=== PATIENT | male | born 1960 | race Two or more races ===

== ENCOUNTER 2017-03-14 05:13 | Inpatient (IN) | payer OTHER ==
[~2017-03-14] VITALS: Ht 167.6 cm; Wt 97.1 kg
[2017-03-14] VITALS (13 sets, daily range): BP systolic 100–145; BP diastolic 55–81
[2017-03-14] MEDS ORDERED: SIMVASTATIN10 MG ORAL (05:52)
[2017-03-14] MEDS ORDERED: PANTOPRAZOLE SO40 MG ORAL (05:52)
[2017-03-14] MEDS ORDERED: AMLODIPINE BESY10 MG ORAL (05:52)
[2017-03-14] MEDS ORDERED: LISINOPRIL40 MG ORAL (05:52)
[2017-03-14] MEDS ORDERED: GABAPENTIN600 MG ORAL (05:52)
[2017-03-14] MEDS ORDERED: LR 1000ml 1,000 ML IVLG SCH ×2 (06:13→14:15)
[2017-03-14] MEDS ORDERED: Midazolam 2mg/2ml Inj IVP PRN ×2 (06:15→14:15)
[2017-03-14] MEDS ORDERED: Norco 5mg/325mg tab ORAL PRN ×2 (06:15→14:15)
[2017-03-14] MEDS ORDERED: Ketorolac 60mg Inj IV PRN ×2 (06:15→14:15)
[2017-03-14] MEDS ORDERED: DiphenhydrAMINE 50mg/ml Inj IVP PRN ×2 (06:15→14:15)
[2017-03-14] MEDS ORDERED: Hydromorphone 0.5mg/0.5ml inj IVP PRN (06:15)
[2017-03-14] MEDS ORDERED: Acetaminophen (Non formulary) 100 ML IV ONE (06:15)
[2017-03-14] MEDS ORDERED: fentaNYL 100 mcg/2 mL IV PRN ×2 (06:15→14:15)
[2017-03-14] MEDS ORDERED: Atropine Inj 1mg/10ml Syr IV PRN ×2 (06:15→14:15)
[2017-03-14] MEDS ORDERED: Ketorolac 30mg Inj IV PRN ×2 (06:15→14:15)
[2017-03-14] MEDS ORDERED: Norco 7.5mg/325mg tab ORAL PRN ×3 (06:15→14:15)
[2017-03-14] MEDS ORDERED: LORazepam Inj 2mg/ml 1ml IV PRN ×2 (06:15→14:15)
[2017-03-14] MEDS ORDERED: oxyCODONE HCL/Acetaminophen 5/325mg ORAL PRN ×2 (06:15→14:15)
[2017-03-14] MEDS ORDERED: Metoclopramide 10mg/2ml Inj IVP PRN ×3 (06:15→14:15)
--- NOTE | 2017-03-14 06:18 | Anethesia Preoperative Eval ---
Anesthesia Pre-op PMH/ROS General Date of Evaluation: Mar 14, 2017 Time of Evaluation: 07:11 Anesthesiologist: Cristina ASA Score: ASA 3 Mallampati Score Class I : Soft palate, uvula, fauces, pillars visible Class II: Soft palate, uvula, fauces visible Class III: Soft palate, base of uvula visible Class IV: Only hard plate visible Mallampati Classification: Class II Surgeon: Bandar Diagnosis: Back Pain Surgical Procedure: ALIF L5-S1, PSF L5-S1 Anesthesia History: none Family History: no anesthesia problems Allergies: Coded Allergies: No Known Allergies (Unverified , 03/10/17) Medications: see eMAR Past Medical History Cardiovascular: Reports: HTN, other - HL Gastrointestinal/Genitourinary: Reports: GERD Endocrine: Reports: DM Other: obesity - BMI 36 PSxH Narrative: Amp 2nd R Toe Anesthesia Pre-op Phys. Exam Physician Exam Vital Signs Date Time Temp Pulse Resp B/P (MAP) Pulse Ox O2 Delivery O2 Flow Rate FiO2 03/14/17 06:24 97.5 74 20 145/81 98 Room Air Constitutional: NAD Neurologic: CN 2-12 intact Cardiovascular: RRR Respiratory: CTA Gastrointestinal: S/NT/ND Airway Exam Mallampati Score: Class II MO: limited ROM: limited Teeth: missing Anesthesia Pre-op A/P Risk Assessment & Plan Assessment: ASA 3 Plan: GA, BIS, Glidescope Status Change Before Surgery: No Pre-Antibiotics Dru Grams Ancef IV Given Within 1 Hr of Incision: Yes Time Given: 07:31 Samson Evans MD Mar 14, 2017 06:18
[2017-03-14] MEDS ORDERED: LISPRO SUBQ (06:19)
[2017-03-14] MEDS ORDERED: ASPIRIN81 MG ORAL (06:19)
[2017-03-14] MEDS ORDERED: LANTUS SOL100 UNIT/1 SUBQ (06:19)
[2017-03-14] MEDS ORDERED: Neostigmine 1mg/ml 10ml Inj ONE (07:00)
[2017-03-14] MEDS ORDERED: fentaNYL 100 mcg/2 mL IV ONE (07:00)
[2017-03-14] MEDS ORDERED: Zemuron 50mg/5ml Inj IV ONE (07:00)
[2017-03-14] MEDS ORDERED: Glycopyrrolate 0.2mg/ml 1ml Vial ONE (07:00)
[2017-03-14] MEDS ORDERED: NS Irrig 1000ml ONE (07:00)
[2017-03-14] MEDS ORDERED: Atropine Sulfate 0.4mg/ml inj ONE (07:00)
[2017-03-14] MEDS ORDERED: Lidocaine 1% MPF 10mg/ml 5ml ONE (07:00)
[2017-03-14] MEDS ORDERED: ePHEDrine 50mg/ml Inj ONE (07:00)
[2017-03-14] MEDS ORDERED: Sterile Water Irrig 1000ml IRRIG ONE (07:00)
[2017-03-14] MEDS ORDERED: Lidocaine 1% Plain 30 ml INJ ONE (07:00)
[2017-03-14] MEDS ORDERED: Propofol 1,000mg/ 100ml btl IV ONE (07:00)
[2017-03-14] MEDS ORDERED: Ropivacaine 5mg/ml Vial 30ml INJ ONE (07:04)
[2017-03-14] MEDS ORDERED: Thrombin 5000 units TOPIC ONE (07:04)
[2017-03-14] MEDS ORDERED: Heparin 5000 units/ml inj ONE (07:04)
[2017-03-14] MEDS ORDERED: Gelfoam Absorbable 1gm powder pkt TOPIC ONE ×2 (07:05→14:04)
[2017-03-14] MEDS ORDERED: Bacitracin 50000 Units Vial ONE ×2 (07:05→14:21)
[2017-03-14] MEDS ORDERED: Thrombin 5000 units spray kit TOPIC ONE ×2 (07:05→14:01)
--- NOTE | 2017-03-14 07:28 | Pre-Procedure Note/Attestation ---
Pre-Procedure Note/Attestation Complete Prior to Procedure Planned Procedure: not applicable Procedure Narrative: Anterior lumbar interbody fusion L5/S1 with bone morphogenic protein and instrumentation, posterior lumbar Lumbar 4 to Sacral 1 decompression with Lumbar 5 to Sacral 1 instrumented fusion with autograft and allograft. Indications for Procedure Pre-Operative Diagnosis: L4 to S1 stenosis with spondylosis L5/S1 and facet hypertrophy. Attestation I attest that I discussed the nature of the procedure; its benefits; risks and complications; and alternatives (and the risks and benefits of such alternatives ), prior to the procedure, with the patient (or the patient's legal uniforms sales representative). I attest that, if there was a reasonable possibility of needing a blood transfusion, the patient (or the patient's legal uniforms sales representative) was given the [place] [employer] standardized written summary, pursuant to the [place] Blood Safety Act ([place] Health and Safety Code # 1645, as amended). I attest that I re-evaluated the patient just prior to the surgery and that there has been no change in the patient's H&P, except as documented below: DENISE GARCIA Mar 14, 2017 07:28
--- NOTE | 2017-03-14 07:33 | Brief Operative Note ---
Immediate Post Operative Note Operative Note Chief Complaint: Low back pain and lumbar radiculopathy Pre-op Diagnosis: L4 to S1 stenosis with spondylosis L5/S1 and facet hypertrophy. Procedure: ALIF L5/S1 L4 to S1 decompression L5/S1 instrumentation Post-op Diagnosis: same as above Post-op Diagnosis: same as pre-op Findings: consistent w/pre-op dx studies Surgeon: Bandar BAPTISTE Desk Representative: Matheus Davis Additional Surgeons: Eileen BAPTISTE Anesthesiologist: Cristina Anesthesia: general Specimen: yes Condition: stable Fluids: per anesthesia Drains: hemovac Packing: none Implant(s) used?: Yes DENISE GARCIA Mar 14, 2017 07:33
[2017-03-14] MEDS ORDERED: Naloxone 0.4mg/ml Inj IVP PRN (10:00)
[2017-03-14] MEDS ORDERED: HYDROmorphone 1mg/ml Carpuject IVP PRN (10:00)
--- NOTE | 2017-03-14 12:26 | Immediate Post-Op Evaluation ---
Immediate Post-Op Evalulation Immediate Post-Op Evalulation Procedure: ALIF L5-S1, PSF L5-S1 Date of Evaluation: Mar 14, 2017 Time of Evaluation: 15:29 IV Fluids: 1900 LR Blood Products: 0 Estimated Blood Loss: 100 Urinary Output: 450 Blood Pressure Systolic: 135 Blood Pressure Diastolic: 73 Pulse Rate: 74 Respiratory Rate: 16 O2 Sat by Pulse Oximetry: 100 Temperature (Fahrenheit): 98.4 Pain Score (1-10): 3 Nausea: No Vomiting: No Complications 0 Patient Status: awake, reacts, patent, extubated, none Hydration Status: adequate Dru Grams Ancef IV Given Within 1 Hr of Incision: Yes Time Given: 07:31 Samson Evans MD Mar 14, 2017 12:26
--- NOTE | 2017-03-14 13:00 | Operative Note - Dictated ---
DATE OF OPERATION: 03/14/2017 SURGEONS: 1. Keshav Arellano M.D.(for the approach). 2. Ajay Portillo M.D.(for the spine procedure). ANESTHESIOLOGIST: Samson Evans M.D. ANESTHESIA: General endotracheal. PREOPERATIVE DIAGNOSIS: Disk disease at L5-S1. POSTOPERATIVE DIAGNOSIS: Disk disease at L5-S1. OPERATIVE PROCEDURES: 1. Muscle sparing, anterior abdominal, extraperitoneal approach for anterior lumbar interbody fusion, L5-S1 (one interspace). 2. Mobilization of left iliac artery. 3. Mobilization of left iliac vein. 4. Exposure of the anterior surface of the spine at L5-S1 (one interspace). INFORMED CONSENT: The procedure of anterior access for an anterior interbody fusion was explained in detail to the patient preoperatively by myself and Dr. Portillo. A molder pipe covering, Karen Smith, surgical scrub tech was used to make sure the patient understood. The risks including hemorrhage, infection, vascular injury, ureteral injury, nerve injury, visceral injury, retrograde ejaculation, and lymphedema were explained in detail. The patient stated that he understood the procedure, its rationale, and risks. He had no further questions and accepted the procedure as outlined above. Background information, indications for surgery, operative findings, and specimens removed will be contained in Dr. Portillo's operative report. OPERATIVE FINDINGS PERTINENT TO ACCESS: There was one accessory vein over the anterior surface of the L5-S1 disk that required ligation and division. Otherwise, all retroperitoneal structures were normal. OPERATIVE PROCEDURE: The patient was brought to the operating room in stable condition. Monitoring was instituted with arterial line, ECG, O2 saturation monitor, and blood pressure cuff. A pulse oximeter was placed on the left foot to monitor circulation to the left lower extremity. The patient was induced with anesthesia without any difficulty. The patient was prepared and draped in sterile fashion. Using x-ray and fluoroscopy, the level of the L5-S1 disk was marked on the skin. A left lower quadrant transverse incision was performed from the midline to the edge of the left rectus, approximately one-third [address] the way up from the pubis to the umbilicus. The incision was carried down through the subcutaneous tissue to the rectus fascia. The rectus fascia was incised with the cautery, with extension into the fibers of the external oblique aponeurosis. Elevation of the rectus fascia away from the anterior surface of the muscle was carried out for a distance of approximately 5 cm both cephalad and caudad. This allowed for retraction of the rectus muscle both medially and laterally in order to obtain direct A-P access to the spine. The inferior epigastric vessels were identified and preserved. The posterior sheath was incised as needed and carefully from the peritoneum, taking care not to enter the peritoneal cavity. The peritoneum was bluntly dissected away from the undersurface of the internal oblique muscle. Careful blunt dissection was used to elevate the peritoneum anteriorly until the psoas muscle was identified. The ureter was also identified and swept upwards with the peritoneum and its contents. Further dissection was used to expose the anterior surface of the left common iliac artery. A Chance retractor was placed into the retroperitoneum lateral to the rectus muscle. A lap sponge was inserted over the psoas muscle and pushed superiorly to keep the abdominal contents out of the way with a Nicky retractor. Careful sharp and blunt dissection was used to expose the entire length of the common iliac artery to its origin at the aortic bifurcation. Dissection along the medial wall of the artery was carried out to expose the common iliac vein, which lies under and slightly to the right of the artery. With extreme care, the vein was also exposed in its entirety. Deep dissection was carried out to expose the L5-S1 disk space. The middle sacral vessels were identified and carefully ligated and cauterized proximally and distally and transected. The accessory vein was doubly ligated and divided. Any other venous tributaries in the area were controlled with clips and/or cautery and then transected. Mobilization of the iliac vessels below the bifurcation was carried out for proper visualization of the anterior surface of the spine. This was done with careful blunt dissection in order to peel away the left common iliac vein from the anterior longitudinal ligament, to which it is very closely approximated. The dissection along the anterior surface of the spine was carried out bluntly and without the use of cautery to preserve the sympathetic plexus, which lies anteriorly, overlying the aortic bifurcation and extends inferiorly towards the sacral hollow. After proper skeletonization and mobilization of the vessels and preservation of all vital structures, the Chance-Nicky retractor combination was removed and the table-held retractor was deployed. The retractor blades were inserted, with the rectus muscle now retracted laterally, first on the right to expose that side of the disk space and then on the left to keep the iliac vessels out of the way. Third and fourth retractor blades were placed inferiorly and superiorly. This allowed complete exposure and direct A-P approach to the anterior surface of the spine at L5-S1. A needle was inserted into the disk and an x-ray taken to verify the midline and the level. Dr. Portillo proceeded to perform the diskectomy, partial vertebrectomy, and fusion using the appropriate technique and hardware. After the diskectomy and fusion were completed, copious irrigation with antibiotic solution was carried out. The retractor blades were removed and the integrity of the iliac vessels was checked to make sure that there was no tear or thrombosis of the vein and that there was adequate flow through the artery with no evidence of spasm or thrombosis. A further check for hemostasis was made and the integrity of the ureter was verified. The peritoneum was allowed to return to its anatomical position. The anterior rectus sheath was closed with a continuous suture of #1 Vicryl. The subcutaneous tissue and skin were closed with a subcuticular stitch of 2-0 Vicryl. Steri-Strips and a sterile dressing were applied. Final sponge, needle, and instrument counts were verified as correct x2. Manual and visual sweeps were correct. Estimated blood loss was minimal and approximately 40 mL. There were good dorsalis pedis and posterior tibial pulses in both feet. The pulse oximeter on the left foot showed 100% oxygen saturation with a triphasic waveform, consistent with preoperative baseline. The patient remained in the operating room, under anesthesia and in stable condition for further surgery. Keshav Arellano M.D. DR: LASHA JOB#: [id number] CC: Ajay Portillo M.D.; Fax#: [phone] [facility]
[2017-03-14] MEDS: Hydromorphone 0.5mg/0.5ml inj IVP PRN ×2 (16:20→16:47)
--- NOTE | 2017-03-14 16:25 | Diagnostic Imaging Report ---
Indication: Lower lumbar fusion Comparison: None Findings: Intraoperative, fluoroscopic views of the lumbar spine were obtained. Fluoroscopic imaging showing discectomy at L5-S1. L5-S1 fusion with pedicle screws and fusion rods noted. Impression: Intraoperative imaging
[2017-03-14] MEDS: 1/2NS w/KCl 20mEq 1000ml 1,000 ML IV SCH (17:58)
[2017-03-14] MEDS: Docusate 100mg cap ORAL SCH (18:00)
--- NOTE | 2017-03-14 19:07 | General Progress Note ---
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 ALIF L5/S1 L4 to S1 decompression L5/S1 instrumentation HTN DM PLAN 1. incentive spirometry 2. Lovenox 3. PT evaluation and therapy 4. Hydration 5. Pain management 6. resume Lantus when taking PO: sliding scale for now and adjust Subjective Allergies: Coded Allergies: No Known Allergies (Unverified , 03/10/17) Subjective post op care noted Objective Last 24 Hour Vital Signs Date Time Temp Pulse Resp B/P (MAP) Pulse Ox O2 Delivery O2 Flow Rate FiO2 03/14/17 17:30 97.2 80 19 108/61 97 Room Air 03/14/17 17:17 98.6 03/14/17 17:15 98.6 74 15 102/60 98 Nasal Cannula 3.0 03/14/17 17:00 75 13 102/58 98 Nasal Cannula 3.0 03/14/17 16:47 74 11 113/63 98 Nasal Cannula 3.0 03/14/17 16:35 73 18 105/66 98 Nasal Cannula 3.0 03/14/17 16:20 73 15 103/60 96 Nasal Cannula 3.0 03/14/17 16:05 74 12 116/69 100 Simple Mask 6.0 03/14/17 15:50 74 11 107/65 100 Simple Mask 6.0 03/14/17 15:38 73 17 104/65 100 Simple Mask 6.0 03/14/17 15:33 73 12 119/70 100 Simple Mask 6.0 03/14/17 15:29 74 16 100 03/14/17 15:28 98.4 73 13 132/72 100 Simple Mask 6.0 03/14/17 06:24 97.5 74 20 145/81 98 Room Air Intake and Output 03/14/17 03/15/17 19:00 07:00 Intake Total 2500 ml Output Total 775 ml Balance 1725 ml Intake IV Total 2500 ml Output Urine Total 550 ml Drainage Total 125 ml Estimated Blood Loss 100 ml Height (Feet): 5 Height (Inches): 6.00 Weight (Pounds): 214 Objective WDWN NAD clear breath sounds bilaterally without rhonchi or wheeze [id number] without MRG NABS nontender no HSM no CCE nonfocal NILDA MERINO Mar 14, 2017 19:07
[2017-03-14] MEDS: ceFAZolin sod 1 GM in D5W 55 ML IV SCH (21:50)
[2017-03-14] MEDS: Norco 7.5mg/325mg tab ORAL PRN (21:51)
[2017-03-14] MEDS: NovoLOG Insulin Flexpen SUBQ SCH (21:56)
--- NOTE | 2017-03-14 23:30 | Operative Note - Dictated ---
DATE OF OPERATION: 03/14/2017 PREOPERATIVE DIAGNOSES: 1. L5-S1 and L4-L5 stenosis with clinical symptomatic lumbar radiculopathy. 2. Aggravation of L4-L5 and L5-S1 stenosis. 3. L5-S1 spondylosis with disk height collapse and facet hypertrophy, intractable leg and back pain. POSTOPERATIVE DIAGNOSES: 1. L5-S1 and L4-L5 stenosis with clinical symptomatic lumbar radiculopathy. 2. Aggravation of L4-L5 and L5-S1 stenosis. 3. L5-S1 spondylosis with disk height collapse and facet hypertrophy, intractable leg and back pain. PROCEDURES PERFORMED: 1. With vascular surgeon, Dr. Keshav Arellano, anterior lumbar interbody fusion, L5-S1. 2. Application biomechanical spacer L5-S1. 3. Anterior spinal daina screw instrumentation L5-S1. 4. BMP fusion. Small BMP used. Dr. Arellano will be dictating his component of the procedure. 5. Bilateral L4-L5, L5-S1 hemilaminotomy, mesial decompression, and foraminotomy. 6. Posterolateral arthrodesis, L5-S1. 7. Posterior instrumentation L5-S1, nonsegmental. 8. Autograft and allograft posterior L5-S1 fusion. 9. Use of microscope. SURGEON: Ajay Portillo M.D. SENIOR MECHANICAL ESTIMATOR: Ajay Gasca CO-SURGEON: Keshav Arellano M.D. ANESTHESIOLOGIST: Samson Evans M.D. ANESTHESIA: General endotracheal combined anesthesia. ESTIMATED BLOOD LOSS: Approximately 400 to 600 mL. IV FLUIDS: Per anesthesia records. INTRAOPERATIVE FINDINGS: Significant spondylosis with anglican of height at L5-S1 and indirect reduction of the foramen at L5-S1, significant stenosis posteriorly noted with disk protrusion noted at L5-S1 bilaterally. Foramen were stenotic and subsequently decompression at L5-S1 the foramen were well maintained. L4-L5 bilateral lateral recess stenosis and foraminal stenosis right side worse than the left. Facet capsule maintained at L4-L5. INDICATIONS FOR PROCEDURE: This is a pleasant gentleman with a significant spine injury and subsequent aggravation with motion segment at L4-L5 and L5-S1 lumbar radiculopathy was noted. The patient had corroborating L5-S1 and L4-L5 MRI findings that matched his subjective complaints. The patient's objective exam findings matched with subjective complaints. The patient had failed a reasonable number of conservative treatment and was indicated for surgery. No guarantees of outcome were given. Risks and benefits were discussed including failure to surgery, , complications of vascular disease after surgery, swollen leg, future operation, adjacent segment degeneration, paralysis, and other complications were also discussed as well as provided to the patient in an informed consent. No guarantees of outcome were given. The patient was preoperatively cleared for surgery. On the day of surgery, the patient was positively identified, taken to operating room, intubated by the anesthesiologist, positioned supine with the spine lift team. Dr. Arellano essentially prepared the patient for anterior retroperitoneal approach, and once the surgical pause was performed, antibiotics were delivered in usual sterile fashion. Dr. Arellano began a retroperitoneal approach and the L5-S1 level was identified on x-ray. Once that level was identified, with me as surgical dental assistant during the retroperitoneal approach, I performed a radical diskectomy, performed endplate preparation for fusion with curettage of the end plate cartilaginous material and slight use of the rasp to create minimal endplate bleeding. Subsequently, sequential dilators were used with a 12 degree lordotic trial and eventually a 14 mm cage was able to be inserted restoring the patient's posterior height and restoring the patient's rostral caudal foraminal height at L5/S1. The cage had good tactile feedback and was fixed well. A 6.5 mm x 35 mm Synthes daina screw and washer were inserted into the sacrum with a very impressive bite and purchase and subsequently the wound was copiously irrigated. Of note, a small BMP sponge with [place] demineralized bone matrix was placed mixed into the cage at L5-S1. Subsequently, Dr. Arellano reapproximated the incision of the abdomen and performed the closure, which he will dictate. X-rays demonstrated good position of the ALIF cage. Subsequently, the patient was positioned prone onto the [place] multi-padded table with the hips well padded. Eyes and genitalia were protected and arms were in standard physiologic position. Markings were made on lumbodorsal region approximately 3 to 4 inches. Subsequently, the back was prepped and draped in a sterile fashion where antibiotics were redosed as necessary. The posterior exposure was completed once the tips of the TPs of L5 and S1 were identified. The facet at L5-S1 was denuded and removed the capsule and L4-L5 capsule was maintained. X-ray confirmed the level and subsequently I began instrumentation initially with L5 pedicle using standard orthopedic spine surgical technique. I was able to insert a 6.5 mm GS medical screw using standard drill pedicle finder ball-tip Feeler and subsequently tap, which was undersized by 0.5 mm to 1 mm for the pedicle screw and inserted the L5 pedicle screw on the left side using fluoroscopic views as well as orthopedic technique with medialization and angulation. Subsequently, the pedicle screw was inserted without difficulty. Medial breach was not noted on direct palpation. I inserted the left S1 screw as well as right L5 and S1 screw using similar technique. Under fluoroscopic visualization, x-rays demonstrated good position. By the time decompression was completed the paralytic medications had worn off I was able to test the pedicles screws. EMG demonstrated no aberrant stimulation with the lowest milliamperes on the right L5 pedicle with 11 milliamperes. The remaining pedicles were greater than 15 or nonreactive. Once the decompression was completed, I was able to palpate medially and did not find under direct palpation medial breach in any of the pedicle screws. Subsequently once the pedicle screws were inserted, the microscope was pulled into the view and performed hemilaminotomy of L4 and L5 initially with removal of ligamentum flavum and drilling the lamina down to a shell at L4 and L5 and decompression. The L4-L5 level was moderately stenotic. The L5-S1 level was in a similar fashion decompressed, however, was quite significantly stenotic with adhesions. There was significant foraminal stenosis and once the decompression was completed, I was able to pass a [place] Feeler and [place] 3 past the foramen as well as in the lateral recess into the S1 region. I repeated this on the right side as well and performed bilateral L4-L5 and L5-S1 decompression. The wound was copiously irrigated with pulse lavage. X-rays demonstrated no aberrant implants. Stimulation with EMG as mentioned previously. Direct palpation of the pedicles did not demonstrate any abnormal breach indicating even if low 11 milliamperes was noted in the right L5, it was noncompressive if there was a slight split in the pedicle or suspicion of a medial breach. The risk outweighed the benefit to exchange that right L5 screw. Subsequently, the rods were attached at L5-S1 and locked in position in lordosis. Lateral gutters were decorticated and bone was placed from the autograft that was collected during the procedure mixed with one-to-one ratio Fibergraft. Once the lateral gutters were decorticated and the graft was applied, the wound was inspected for excessive bleeding. Once hemostasis was obtained, there was some minimal ooze as expected. FloSeal was applied as necessary. Bipolar was used copiously and there was no CSF leak during the procedure under Valsalva maneuver which was performed. The wound was reapproximated with multilevel closure with #1 Vicryl for the fascia, anchored to the spinous prosthesis, 2-0 Vicryl for the dermis, and 3-0 Monocryl for the skin. Two subfascial drains were applied on either side of the spine and the patient's dressings were applied and subsequently using spine lift team, with appropriate precautions, the patient was returned to supine position in the rney with the spine lift team. COMPLICATIONS: None. DISPOSITION: To recovery in stable condition. Ajay Portillo M.D. DR: LINDA JOB#: [id number] CC: NATY
[2017-03-15 00:54] VITALS: BP 108/62
[2017-03-15] MEDS: 1/2NS w/KCl 20mEq 1000ml 1,000 ML IV SCH (02:51)
[2017-03-15 04:47] VITALS: BP 113/62
[2017-03-15] MEDS: ceFAZolin sod 1 GM in D5W 55 ML IV SCH ×3 (05:58→21:31)
[2017-03-15] MEDS: NovoLOG Insulin Flexpen SUBQ SCH ×4 (06:00→21:33)
[2017-03-15 08:00] VITALS: BP 115/63
[2017-03-15 08:18] LABS: BASOPHILS % (AUTO) 0.4 % (0.0-2.0); EOSINOPHILS % (AUTO) 0.4 % (0.0-3.0); LYMPHOCYTES % (AUTO) 12.3 % (20.0-45.0); MEAN CORPUSCULAR HEMOGLOBIN 30.9 PG (27.0-31.0); MEAN CORPUSCULAR HGB CONC 35.4 G/DL (32.0-36.0); MEAN CORPUSCULAR VOLUME 87 FL (80-99); MEAN PLATELET VOLUME 8.6 FL (6.5-10.1); NEUTROPHILS % (AUTO) 77.9 % (45.0-75.0); PLATELET COUNT 119 K/UL (150-450); RED BLOOD COUNT 2.96 M/UL (4.70-6.10); RED CELL DISTRIBUTION WIDTH 11.1 % (11.6-14.8); WHITE BLOOD COUNT 7.3 K/UL (4.8-10.8)
[2017-03-15 08:34] LABS: ANION GAP 5 mmol/L (5-15); CARBON DIOXIDE 25 MMOL/L (21-32); CHLORIDE 101 MMOL/L (98-107); CREATININE 1.7 MG/DL (0.55-1.30); GLOMERULAR FILTRATION RATE 41.8 mL/min (>60); POTASSIUM 5.9 MMOL/L (3.5-5.1); SODIUM 131 MMOL/L (136-145)
[2017-03-15] MEDS: Docusate 100mg cap ORAL SCH ×2 (09:28→18:20)
[2017-03-15] MEDS: Lisinopril 20mg tab ORAL SCH (09:29)
[2017-03-15 10:20] LABS: BASOPHILS % (AUTO) 0.5 % (0.0-2.0); EOSINOPHILS % (AUTO) 0.5 % (0.0-3.0); LYMPHOCYTES % (AUTO) 11.7 % (20.0-45.0); MEAN CORPUSCULAR HEMOGLOBIN 30.4 PG (27.0-31.0); MEAN CORPUSCULAR HGB CONC 34.9 G/DL (32.0-36.0); MEAN CORPUSCULAR VOLUME 87 FL (80-99); MEAN PLATELET VOLUME 7.5 FL (6.5-10.1); MONOCYTES % (AUTO) 10.9 % (1.0-10.0); NEUTROPHILS % (AUTO) 76.4 % (45.0-75.0); PLATELET COUNT 121 K/UL (150-450); RED BLOOD COUNT 2.92 M/UL (4.70-6.10); RED CELL DISTRIBUTION WIDTH 11.1 % (11.6-14.8); WHITE BLOOD COUNT 8.3 K/UL (4.8-10.8)
--- NOTE | 2017-03-15 10:22 | General Progress Note ---
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 ALIF L5/S1 L4 to S1 decompression L5/S1 instrumentation HTN DM (150-160) elevated K likely due to IV fluid reduced NA anemia PLAN 1. incentive spirometry 2. Lovenox 3. PT evaluation and therapy 4. Hydration- dc KCL and change to NS; recheck BMP today 5. Pain management 6. resume Lantus when taking PO: sliding scale for now and adjust- controlled thus far impression, plan, and exam edited and reviewed in detail care discussed with RN Subjective Allergies: Coded Allergies: No Known Allergies (Unverified , 03/10/17) Subjective post op care noted comfortable Objective Last 24 Hour Vital Signs Date Time Temp Pulse Resp B/P (MAP) Pulse Ox O2 Delivery O2 Flow Rate FiO2 03/15/17 09:29 115/63 03/15/17 09:29 95 115/63 03/15/17 08:00 97.0 95 19 115/63 96 Nasal Cannula 2.0 03/15/17 04:47 99.2 88 18 113/62 96 Nasal Cannula 3.0 03/15/17 00:54 98.1 85 18 108/62 95 Nasal Cannula 3.0 03/14/17 22:50 98.3 03/14/17 20:58 98.3 79 19 100/55 96 Nasal Cannula 3.0 03/14/17 17:30 97.2 80 19 108/61 97 Room Air 03/14/17 17:17 98.6 03/14/17 17:15 98.6 74 15 102/60 98 Nasal Cannula 3.0 03/14/17 17:00 75 13 102/58 98 Nasal Cannula 3.0 03/14/17 16:47 74 11 113/63 98 Nasal Cannula 3.0 03/14/17 16:35 73 18 105/66 98 Nasal Cannula 3.0 03/14/17 16:20 73 15 103/60 96 Nasal Cannula 3.0 03/14/17 16:05 74 12 116/69 100 Simple Mask 6.0 03/14/17 15:50 74 11 107/65 100 Simple Mask 6.0 03/14/17 15:38 73 17 104/65 100 Simple Mask 6.0 03/14/17 15:33 73 12 119/70 100 Simple Mask 6.0 03/14/17 15:29 74 16 100 03/14/17 15:28 98.4 73 13 132/72 100 Simple Mask 6.0 Laboratory Tests 03/15/17 07:00: White Blood Count 7.3, Red Blood Count 2.96L, Hemoglobin 9.1L, Hematocrit 25.8L , Mean Corpuscular Volume 87, Mean Corpuscular Hemoglobin 30.9, Mean Corpuscular Hemoglobin Concent 35.4, Red Cell Distribution Width 11.1L, Platelet Count 119L, Mean Platelet Volume 8.6, Neutrophils (%) (Auto) 77.9H, Lymphocytes (%) (Auto) 12.3L, Monocytes (%) (Auto) 9.0, Eosinophils (%) (Auto) 0.4, Basophils (%) (Auto) 0.4, Sodium Level 131L, Potassium Level 5.9H, Chloride Level 101, Carbon Dioxide Level 25, Anion Gap 5, Blood Urea Nitrogen 35H, Creatinine 1.7H, Estimat Glomerular Filtration Rate 41.8, Glucose Level 140H, Calcium Level 8.0L 03/15/17 10:10: White Blood Count [Pending], Red Blood Count [Pending], Hemoglobin [Pending], Hematocrit [Pending], Mean Corpuscular Volume [Pending], Mean Corpuscular Hemoglobin [Pending], Mean Corpuscular Hemoglobin Concent [Pending], Red Cell Distribution Width [Pending], Platelet Count [Pending], Mean Platelet Volume [ Pending], Neutrophils (%) (Auto) [Pending], Lymphocytes (%) (Auto) [Pending], Monocytes (%) (Auto) [Pending], Eosinophils (%) (Auto) [Pending], Basophils (%) (Auto) [Pending], Sodium Level [Pending], Potassium Level [Pending], Chloride Level [Pending], Carbon Dioxide Level [Pending], Blood Urea Nitrogen [Pending], Creatinine [Pending], Estimat Glomerular Filtration Rate [Pending], Glucose Level [Pending], Calcium Level [Pending] Height (Feet): 5 Height (Inches): 6.00 Weight (Pounds): 214 Objective WDWN NAD clear breath sounds bilaterally without rhonchi or wheeze [id number] without MRG NABS nontender no HSM no CCE nonfocal NILDA MERINO Mar 15, 2017 10:22
[2017-03-15 10:38] LABS: ANION GAP 5 mmol/L (5-15); CALCIUM 8.2 MG/DL (8.5-10.1); CARBON DIOXIDE 26 MMOL/L (21-32); CHLORIDE 101 MMOL/L (98-107); CREATININE 1.7 MG/DL (0.55-1.30); GLOMERULAR FILTRATION RATE 41.8 mL/min (>60); POTASSIUM 5.8 MMOL/L (3.5-5.1); SODIUM 131 MMOL/L (136-145)
[2017-03-15 12:00] VITALS: BP 104/60
[2017-03-15 16:00] VITALS: BP 109/59
[2017-03-15 20:23] VITALS: BP 104/48
[2017-03-16 00:19] VITALS: BP 119/65
[2017-03-16] MEDS: Norco 7.5mg/325mg tab ORAL PRN ×2 (00:28→20:09)
[2017-03-16 04:41] VITALS: BP 98/50
[2017-03-16] MEDS: ceFAZolin sod 1 GM in D5W 55 ML IV SCH (06:45)
[2017-03-16] MEDS: NovoLOG Insulin Flexpen SUBQ SCH ×4 (06:50→20:15)
[2017-03-16 07:18] LABS: ANION GAP 6 mmol/L (5-15); CALCIUM 8.2 MG/DL (8.5-10.1); CARBON DIOXIDE 21 MMOL/L (21-32); CHLORIDE 101 MMOL/L (98-107); CREATININE 1.7 MG/DL (0.55-1.30); GLOMERULAR FILTRATION RATE 41.8 mL/min (>60); POTASSIUM 5.4 MMOL/L (3.5-5.1); SODIUM 128 MMOL/L (136-145)
[2017-03-16 07:25] LABS: BASOPHILS % (AUTO) 0.5 % (0.0-2.0); EOSINOPHILS % (AUTO) 0.3 % (0.0-3.0); MEAN CORPUSCULAR HEMOGLOBIN 31.1 PG (27.0-31.0); MEAN CORPUSCULAR HGB CONC 35.2 G/DL (32.0-36.0); MEAN CORPUSCULAR VOLUME 88 FL (80-99); MONOCYTES % (AUTO) 11.9 % (1.0-10.0); NEUTROPHILS % (AUTO) 78.3 % (45.0-75.0); PLATELET COUNT 100 K/UL (150-450); RED BLOOD COUNT 2.71 M/UL (4.70-6.10); RED CELL DISTRIBUTION WIDTH 11.4 % (11.6-14.8); WHITE BLOOD COUNT 10.5 K/UL (4.8-10.8)
--- NOTE | 2017-03-16 08:12 | General Progress Note ---
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 ALIF L5/S1 L4 to S1 decompression L5/S1 instrumentation HTN DM (150-160) elevated K likely due to IV fluid reduced NA anemia PLAN 1. incentive spirometry 2. Lovenox 3. PT evaluation and therapy 4. Hydration-and monitor K 5. Pain management 6. resume Lantus when taking PO: sliding scale and increase coverage impression, plan, and exam edited and reviewed in detail care discussed with RN Subjective Allergies: Coded Allergies: No Known Allergies (Unverified , 03/10/17) Subjective post op care noted comfortable sugars at 170 Objective Last 24 Hour Vital Signs Date Time Temp Pulse Resp B/P (MAP) Pulse Ox O2 Delivery O2 Flow Rate FiO2 03/16/17 04:41 97.8 62 18 98/50 90 03/16/17 01:32 99.2 03/16/17 00:19 99.2 103 18 119/65 92 Room Air 03/15/17 20:23 98.0 109 17 104/48 88 Room Air 03/15/17 16:00 99.1 101 20 109/59 96 Room Air 03/15/17 12:00 98.1 102 20 104/60 97 Room Air 03/15/17 09:29 115/63 03/15/17 09:29 95 115/63 Laboratory Tests 03/15/17 10:10: White Blood Count 8.3, Red Blood Count 2.92L, Hemoglobin 8.9L, Hematocrit 25.4L , Mean Corpuscular Volume 87, Mean Corpuscular Hemoglobin 30.4, Mean Corpuscular Hemoglobin Concent 34.9, Red Cell Distribution Width 11.1L, Platelet Count 121L, Mean Platelet Volume 7.5, Neutrophils (%) (Auto) 76.4H, Lymphocytes (%) (Auto) 11.7L, Monocytes (%) (Auto) 10.9H, Eosinophils (%) (Auto ) 0.5, Basophils (%) (Auto) 0.5, Sodium Level 131L, Potassium Level 5.8H, Chloride Level 101, Carbon Dioxide Level 26, Anion Gap 5, Blood Urea Nitrogen 34H, Creatinine 1.7H, Estimat Glomerular Filtration Rate 41.8, Glucose Level 141H, Calcium Level 8.2L 03/16/17 05:20: White Blood Count 10.5, Red Blood Count 2.71L, Hemoglobin 8.4L, Hematocrit 23.9L , Mean Corpuscular Volume 88, Mean Corpuscular Hemoglobin 31.1H, Mean Corpuscular Hemoglobin Concent 35.2, Red Cell Distribution Width 11.4L, Platelet Count 100L, Mean Platelet Volume 9.0, Neutrophils (%) (Auto) 78.3H, Lymphocytes (%) (Auto) 9.0L, Monocytes (%) (Auto) 11.9H, Eosinophils (%) (Auto) 0.3, Basophils (%) (Auto) 0.5, Sodium Level 128L, Potassium Level 5.4H, Chloride Level 101, Carbon Dioxide Level 21, Anion Gap 6, Blood Urea Nitrogen 31H, Creatinine 1.7H, Estimat Glomerular Filtration Rate 41.8, Glucose Level 160H, Calcium Level 8.2L Height (Feet): 5 Height (Inches): 6.00 Weight (Pounds): 214 Objective WDWN NAD clear breath sounds bilaterally without rhonchi or wheeze [id number] without MRG NABS nontender no HSM no CCE nonfocal NILDA MERINO Mar 16, 2017 08:12
[2017-03-16 08:37] VITALS: BP 118/68
[2017-03-16] MEDS ORDERED: Metoclopramide 10mg/2ml Inj IVP SCH (09:00)
[2017-03-16] MEDS: Lisinopril 20mg tab ORAL SCH (09:20)
[2017-03-16] MEDS: Docusate 100mg cap ORAL SCH ×2 (09:20→17:40)
[2017-03-16] MEDS: Metoclopramide 10mg/2ml Inj IVP SCH ×2 (10:05→17:40)
--- NOTE | 2017-03-16 10:48 | 48 Hour Post Anesthesia Eval ---
Post Anesthesia Evaluation Procedure: ALIF L5-S1, PSF L5-S1 Date of Evaluation: Mar 16, 2017 Time of Evaluation: 10:47 Blood Pressure Systolic: 128 0: 76 Pulse Rate: 64 Respiratory Rate: 20 Temperature (Fahrenheit): 97.6 O2 Sat by Pulse Oximetry: 98 Airway: patent Nausea: No Vomiting: No Pain Intensity: 3 Hydration Status: adequate Cardiopulmonary Status: stable Mental Status/LOC: patient returned to baseline Follow-up Care/Observations: n/a Post-Anesthesia Complications: none Follow-up care needed: N/A TERRY BALDWNI M.D. Mar 16, 2017 10:48
[2017-03-16 12:37] VITALS: BP 123/63
[2017-03-16 16:09] VITALS: BP 119/63
[2017-03-16] MEDS ORDERED: Tubing IV Secondary IV ONE (16:49)
[2017-03-16 20:00] VITALS: BP 118/67
[2017-03-16] MEDS: Levemir Flexpen SUBQ SCH (20:15)
[2017-03-16] MEDS ORDERED: Iron Sucrose 100 MG in NS 55 ML IVPB SCH (21:00)
[2017-03-17] VITALS (8 sets, daily range): BP systolic 98–121; BP diastolic 51–64
[2017-03-17] MEDS: NovoLOG Insulin Flexpen SUBQ SCH ×4 (06:12→21:43)
[2017-03-17 07:51] LABS: BASOPHILS % (AUTO) 0.7 % (0.0-2.0); EOSINOPHILS % (AUTO) 1.6 % (0.0-3.0); LYMPHOCYTES % (AUTO) 10.2 % (20.0-45.0); MEAN CORPUSCULAR HEMOGLOBIN 31.4 PG (27.0-31.0); MEAN CORPUSCULAR VOLUME 87 FL (80-99); MEAN PLATELET VOLUME 7.5 FL (6.5-10.1); NEUTROPHILS % (AUTO) 77.4 % (45.0-75.0); PLATELET COUNT 127 K/UL (150-450); RED BLOOD COUNT 2.62 M/UL (4.70-6.10); RED CELL DISTRIBUTION WIDTH 11.3 % (11.6-14.8); WHITE BLOOD COUNT 10.8 K/UL (4.8-10.8)
[2017-03-17 08:05] LABS: ANION GAP 7 mmol/L (5-15); CALCIUM 8.3 MG/DL (8.5-10.1); CARBON DIOXIDE 24 MMOL/L (21-32); CHLORIDE 98 MMOL/L (98-107); CREATININE 1.8 MG/DL (0.55-1.30); GLOMERULAR FILTRATION RATE 39.1 mL/min (>60); POTASSIUM 4.8 MMOL/L (3.5-5.1); SODIUM 128 MMOL/L (136-145)
[2017-03-17] MEDS: Docusate 100mg cap ORAL SCH ×2 (08:25→18:18)
[2017-03-17] MEDS: Lisinopril 20mg tab ORAL SCH (08:26)
--- NOTE | 2017-03-17 10:19 | General Progress Note ---
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 ALIF L5/S1 L4 to S1 decompression L5/S1 instrumentation HTN DM (150-160) elevated K likely due to IV fluid reduced NA anemia low grade fevers PLAN 1. incentive spirometry 2. cxr and urine dip 3. PT evaluation and therapy 4. Hydration-and monitor K 5. Pain management 6. Lantus and monitor sugars 7. transfuse 1 unit prbc impression, plan, and exam edited and reviewed in detail care discussed with RN Subjective Allergies: Coded Allergies: No Known Allergies (Unverified , 03/10/17) Subjective post op care noted low grade fevers sugars at 170 Objective Last 24 Hour Vital Signs Date Time Temp Pulse Resp B/P (MAP) Pulse Ox O2 Delivery O2 Flow Rate FiO2 03/17/17 08:29 98.2 03/17/17 08:26 98/56 03/17/17 08:26 90 98/56 03/17/17 08:26 90 18 98/56 95 Room Air 03/17/17 07:28 99.8 03/17/17 04:00 98.6 97 19 121/63 95 Room Air 03/17/17 00:00 99.5 88 18 116/64 94 Room Air 03/16/17 20:00 100.4 90 20 118/67 95 Room Air 03/16/17 16:09 99.1 98 20 119/63 92 03/16/17 12:37 98.1 103 20 123/63 96 03/16/17 10:48 64 20 98 Intake and Output 03/17/17 03/18/17 19:00 07:00 Intake Total 560 ml Balance 560 ml Intake Oral 360 ml IV Total 200 ml # Voids 1 Laboratory Tests 03/17/17 07:35: White Blood Count 10.8, Red Blood Count 2.62L, Hemoglobin 8.2L, Hematocrit 22.9L , Mean Corpuscular Volume 87, Mean Corpuscular Hemoglobin 31.4H, Mean Corpuscular Hemoglobin Concent 36.0, Red Cell Distribution Width 11.3L, Platelet Count 127L, Mean Platelet Volume 7.5, Neutrophils (%) (Auto) 77.4H, Lymphocytes (%) (Auto) 10.2L, Monocytes (%) (Auto) 10.0, Eosinophils (%) (Auto) 1.6, Basophils (%) (Auto) 0.7, Sodium Level 128L, Potassium Level 4.8, Chloride Level 98, Carbon Dioxide Level 24, Anion Gap 7, Blood Urea Nitrogen 38H, Creatinine 1.8H, Estimat Glomerular Filtration Rate 39.1, Glucose Level 111H, Calcium Level 8.3L Height (Feet): 5 Height (Inches): 6.00 Weight (Pounds): 214 Objective WDWN NAD clear breath sounds bilaterally without rhonchi or wheeze [id number] without MRG NABS nontender no HSM no CCE nonfocal NILDA MERINO Mar 17, 2017 10:19
[2017-03-17] MEDS: Norco 7.5mg/325mg tab ORAL PRN ×2 (11:59→18:21)
[2017-03-17 13:03] LABS: APPEARANCE,URINE CLEAR; KETONES,URINE NEGATIVE (NEGATIVE); LEUKOCYTE ESTERASE ,URINE 1+ (NEGATIVE); NITRITE,URINE NEGATIVE (NEGATIVE); PH,URINE 5 (4.5-8.0); PROTEIN,URINE 2+ (NEGATIVE); UROBILINOGEN,URINE NORMAL MG/DL (0.0-1.0)
--- NOTE | 2017-03-17 13:16 | Diagnostic Imaging Report ---
Indication: Chest pain Technique: One view of the chest Comparison: none Findings: Band of atelectasis is seen in left mid lung. Lungs and pleural spaces are otherwise clear. Heart size is normal. Impression: Left midlung atelectasis. No acute process otherwise
[2017-03-17 13:22] LABS: BACTERIA,URINE OCCASIONAL /HPF; RBC,URINE 0-2 /HPF (0 - 0); SQUAMOUS EPITHELIAL CELL,UR OCCASIONAL /LPF (NONE/OCC)
[2017-03-17] MEDS: Milk of Magnesia 30ml Ud ORAL PRN (13:55)
[2017-03-17] MEDS ORDERED: D5 1/2NS 1000ml IV ONE (15:18)
[2017-03-17] MEDS ORDERED: Tubing IV Blood Pump IV ONE (15:19)
[2017-03-17] MEDS ORDERED: NS 500ML ONE (15:19)
[2017-03-17] MEDS ORDERED: Lidocaine HCl 2% Jelly 5ml Tube TOPIC ONE (21:30)
[2017-03-17] MEDS: Levemir Flexpen SUBQ SCH (21:43)
[2017-03-18 04:00] VITALS: BP 118/54
[2017-03-18] MEDS: NovoLOG Insulin Flexpen SUBQ SCH ×4 (06:57→20:58)
[2017-03-18 08:00] VITALS: BP 127/66
--- NOTE | 2017-03-18 08:03 | General Progress Note ---
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 ALIF L5/S1 L4 to S1 decompression L5/S1 instrumentation HTN DM (150-160) elevated K likely due to IV fluid reduced NA anemia low grade fevers urinary retention PLAN 1. incentive spirometry 2. cxr and urine dip noted 3. PT evaluation and therapy 4. shearer and start Flomax 5. Pain management 6. Lantus and monitor sugars 7. monitor lytes and HH impression, plan, and exam edited and reviewed in detail care discussed with RN Subjective Allergies: Coded Allergies: No Known Allergies (Unverified , 03/10/17) Subjective post op care noted low grade fevers sugars at 114 this am had urinary retention and shearer replaced Objective Last 24 Hour Vital Signs Date Time Temp Pulse Resp B/P (MAP) Pulse Ox O2 Delivery O2 Flow Rate FiO2 03/18/17 04:00 98.6 86 17 118/54 96 Room Air 03/17/17 20:20 98.1 91 18 112/56 97 Room Air 03/17/17 19:20 99.0 03/17/17 15:38 99.0 85 18 107/57 95 Room Air 03/17/17 13:20 98.4 94 20 105/51 97 Room Air 03/17/17 13:00 99.0 92 18 107/53 95 Room Air 03/17/17 12:00 99.0 92 20 107/53 95 Room Air 03/17/17 08:29 98.2 03/17/17 08:26 98/56 03/17/17 08:26 90 98/56 03/17/17 08:26 90 18 98/56 95 Room Air Laboratory Tests 03/17/17 12:20: Urine Color Yellow, Urine Appearance Clear, Urine pH 5, Urine Specific [place] 1.015, Urine Protein 2+H, Urine Glucose (UA) Negative, Urine Ketones Negative, Urine Occult Blood Negative, Urine Nitrite Negative, Urine Bilirubin Negative, Urine Urobilinogen Normal, Urine Leukocyte Esterase 1+H, Urine RBC 0-2H, Urine WBC 2-4, Urine Squamous Epithelial Cells Occasional, Urine Bacteria Occasional Height (Feet): 5 Height (Inches): 6.00 Weight (Pounds): 214 Objective WDWN NAD clear breath sounds bilaterally without rhonchi or wheeze [id number] without MRG NABS nontender no HSM no CCE nonfocal with scrotal swelling and shearer NILDA MERINO Mar 18, 2017 08:03
[2017-03-18 08:17] LABS: BASOPHILS % (AUTO) 0.7 % (0.0-2.0); EOSINOPHILS % (AUTO) 2.9 % (0.0-3.0); LYMPHOCYTES % (AUTO) 13.2 % (20.0-45.0); MEAN CORPUSCULAR HGB CONC 35.9 G/DL (32.0-36.0); MEAN CORPUSCULAR VOLUME 86 FL (80-99); MEAN PLATELET VOLUME 7.5 FL (6.5-10.1); MONOCYTES % (AUTO) 11.6 % (1.0-10.0); NEUTROPHILS % (AUTO) 71.6 % (45.0-75.0); PLATELET COUNT 110 K/UL (150-450); RED CELL DISTRIBUTION WIDTH 10.7 % (11.6-14.8); WHITE BLOOD COUNT 5.9 K/UL (4.8-10.8)
[2017-03-18 08:40] LABS: ANION GAP 6 mmol/L (5-15); CALCIUM 7.7 MG/DL (8.5-10.1); CARBON DIOXIDE 22 MMOL/L (21-32); CHLORIDE 96 MMOL/L (98-107); CREATININE 1.3 MG/DL (0.55-1.30); GLOMERULAR FILTRATION RATE 56.9 mL/min (>60); POTASSIUM 4.7 MMOL/L (3.5-5.1); SODIUM 124 MMOL/L (136-145)
[2017-03-18] MEDS: Docusate 100mg cap ORAL SCH ×2 (09:24→17:49)
[2017-03-18] MEDS: Lisinopril 20mg tab ORAL SCH (09:25)
[2017-03-18 16:00] VITALS: BP 126/61
[2017-03-18] MEDS: Milk of Magnesia 30ml Ud ORAL PRN (16:12)
[2017-03-18] MEDS ORDERED: Magnesium Citrate Liq Btl ORAL ONE (18:00)
[2017-03-18 20:00] VITALS: BP 129/59
[2017-03-18] MEDS: Levemir Flexpen SUBQ SCH (20:57)
[2017-03-18] MEDS: Tamsulosin 0.4mg cap ORAL SCH (20:58)
[2017-03-19 00:07] VITALS: BP 126/68
[2017-03-19] MEDS: Norco 7.5mg/325mg tab ORAL PRN (03:56)
[2017-03-19 04:04] VITALS: BP 130/69
[2017-03-19 05:46] LABS: BASOPHILS % (AUTO) 0.8 % (0.0-2.0); EOSINOPHILS % (AUTO) 1.9 % (0.0-3.0); LYMPHOCYTES % (AUTO) 10.6 % (20.0-45.0); MEAN CORPUSCULAR HGB CONC 35.8 G/DL (32.0-36.0); MEAN CORPUSCULAR VOLUME 87 FL (80-99); MEAN PLATELET VOLUME 6.6 FL (6.5-10.1); MONOCYTES % (AUTO) 14.8 % (1.0-10.0); NEUTROPHILS % (AUTO) 71.9 % (45.0-75.0); PLATELET COUNT 132 K/UL (150-450); RED BLOOD COUNT 2.72 M/UL (4.70-6.10); WHITE BLOOD COUNT 4.5 K/UL (4.8-10.8)
[2017-03-19 05:58] LABS: ANION GAP 6 mmol/L (5-15); CALCIUM 7.8 MG/DL (8.5-10.1); CARBON DIOXIDE 23 MMOL/L (21-32); CHLORIDE 102 MMOL/L (98-107); CREATININE 1.1 MG/DL (0.55-1.30); GLOMERULAR FILTRATION RATE > 60 mL/min (>60); POTASSIUM 4.9 MMOL/L (3.5-5.1); SODIUM 131 MMOL/L (136-145)
[2017-03-19] MEDS: NovoLOG Insulin Flexpen SUBQ SCH ×4 (06:14→21:22)
[2017-03-19 07:35] VITALS: BP 126/63
--- NOTE | 2017-03-19 07:47 | General Progress Note ---
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 ALIF L5/S1 L4 to S1 decompression L5/S1 instrumentation HTN DM (150-160) elevated K likely due to IV fluid reduced NA anemia low grade fevers urinary retention PLAN 1. incentive spirometry 2. cxr and urine dip noted 3. PT evaluation and therapy 4. shearer and Flomax- voiding trial and eval in am 5. Pain management 6. Lantus and monitor sugars- increase dosing 7. monitor lytes and HH- may need additional transfusion; iv fluids for now impression, plan, and exam edited and reviewed in detail care discussed with RN Subjective Allergies: Coded Allergies: No Known Allergies (Unverified , 03/10/17) Subjective post op care noted shearer in place still anemic s/p transfusion Objective Last 24 Hour Vital Signs Date Time Temp Pulse Resp B/P (MAP) Pulse Ox O2 Delivery O2 Flow Rate FiO2 03/19/17 07:35 97.5 86 18 126/63 94 Room Air 03/19/17 04:04 98.6 90 18 130/69 97 Room Air 03/19/17 00:07 99.2 90 18 126/68 94 Room Air 03/18/17 20:00 98.6 93 18 129/59 96 Room Air 03/18/17 17:11 98.6 03/18/17 16:00 101.7 98 20 126/61 96 Room Air 03/18/17 09:25 127/66 03/18/17 09:25 93 127/66 03/18/17 08:00 100.4 93 19 127/66 96 Room Air Laboratory Tests 03/19/17 05:10: White Blood Count 4.5L, Red Blood Count 2.72L, Hemoglobin 8.4L, Hematocrit 23.6L , Mean Corpuscular Volume 87, Mean Corpuscular Hemoglobin 31.0, Mean Corpuscular Hemoglobin Concent 35.8, Red Cell Distribution Width 11.0L, Platelet Count 132L, Mean Platelet Volume 6.6, Neutrophils (%) (Auto) 71.9, Lymphocytes (%) (Auto) 10.6L, Monocytes (%) (Auto) 14.8H, Eosinophils (%) (Auto ) 1.9, Basophils (%) (Auto) 0.8, Sodium Level 131L, Potassium Level 4.9, Chloride Level 102, Carbon Dioxide Level 23, Anion Gap 6, Blood Urea Nitrogen 29H, Creatinine 1.1, Estimat Glomerular Filtration Rate > 60, Glucose Level 179H , Calcium Level 7.8L Height (Feet): 5 Height (Inches): 6.00 Weight (Pounds): 214 Objective WDWN NAD clear breath sounds bilaterally without rhonchi or wheeze [id number] without MRG NABS nontender no HSM no CCE nonfocal with scrotal swelling and shearer NILDA MERINO Mar 19, 2017 07:47
[2017-03-19] MEDS: Docusate 100mg cap ORAL SCH ×2 (08:47→17:23)
[2017-03-19] MEDS: Lisinopril 20mg tab ORAL SCH (08:47)
[2017-03-19 12:00] VITALS: BP 112/72
[2017-03-19] MEDS ORDERED: Hydromorphone 0.5mg/0.5ml inj IVP PRN (13:00)
[2017-03-19] MEDS ORDERED: Sodium Chloride 500ML 550 ML IV SCH (14:15)
[2017-03-19] MEDS: Sodium Chloride 500ML 550 ML IV SCH ×2 (14:40→20:55)
[2017-03-19 16:00] VITALS: BP 140/71
[2017-03-19 20:00] VITALS: BP 119/75
[2017-03-19] MEDS ORDERED: Levemir Flexpen SUBQ SCH (21:00)
[2017-03-19] MEDS: Tamsulosin 0.4mg cap ORAL SCH (21:15)
[2017-03-20] VITALS: BP 124/71
[2017-03-20] MEDS: Sodium Chloride 500ML 550 ML IV SCH (01:59)
[2017-03-21] MEDS ORDERED: EUCERIN CREAM15 GM TOPIC (23:11)
[2017-03-21] MEDS ORDERED: PANTOPRAZOLE SO40 MG ORAL (23:11)
[2017-03-21] MEDS ORDERED: TRIPLE ANTIBIO1 EAC1 TP (23:11)
[2017-03-21] MEDS ORDERED: FLUOXETINE HCL20 MG ORAL (23:11)
[2017-03-21] MEDS ORDERED: CLOTRIMAZOLE15 GM TOPIC (23:11)
[2017-03-21] MEDS ORDERED: ASPIRIN-LOW81 MG ORAL (23:11)
--- NOTE | 2017-03-22 08:51 | Discharge Summary ---
Discharge Summary Hospital Course Date of Admission Mar 14, 2017 at 05:13 Date of Discharge Mar 20, 2017 at 03:15 Admitting Diagnosis low back pain and lumbar radiculopathy Reason for Hospitalization: elective surgery HPI Jesus Bowen is a 56 year old male who was admitted on Mar 14, 2017 at 05:13 for L4 to S1 stenosis with spondylosis L5/S1 and facet hypertrophy patient was admitted for elective surgery Procedures s/p 03/14/[address] Portillo ( spine surgery) and dr Arellano ( approach) by dr Portillo: 1. Anterior lumbar interbody fusion, L5-S1. 2. Application biomechanical spacer L5-S1. 3. Anterior spinal daina screw instrumentation L5-S1. 4. BMP fusion. Small BMP used. Dr. Arellano will be dictating his component of the procedure. 5. Bilateral L4-L5, L5-S1 hemilaminotomy, mesial decompression, and foraminotomy. 6. Posterolateral arthrodesis, L5-S1. 7. Posterior instrumentation L5-S1, nonsegmental. 8. Autograft and allograft posterior L5-S1 fusion. 9. Use of microscope. by dr Arellano ( approach) 1. Muscle sparing, anterior abdominal, extraperitoneal approach for anterior lumbar interbody fusion, L5-S1 (one interspace). 2. Mobilization of left iliac artery. 3. Mobilization of left iliac vein. 4. Exposure of the anterior surface of the spine at L5-S1 (one interspace). Hospital Course s/p surgery IV hydration initially, changed to plain IVF without K due to hyper K, pain management neurovascular intact incision C/D/I PT eval and Rx, ambulated Hernandez in , due to urinary retention started on Flomax DVT, GI prophayxlsi IS while in the bed noted intermittent fevers, UA - negative, CXR with atelectasis, encourage ambulation and use of IS diet advanced, tolerated diet BS management with Levemir and SS of insulin as needed, BS stable BP management with BONY and CCB, stable s/p 1 u PRBC transfusion on po iron supplements, s/p 1 dose of IV iron HH at baseline patient decided to sign AMA risks and consequences against signing AMA explained by nursing staff, patient insisted and signed, accompanied by family Hernandez dc prior, no fevers for 48 hrs prior to signing AMA DISCHARGE DIAGNOSIS L5-S1 and L4-L5 stenosis with clinical symptomatic lumbar radiculopathy. Aggravation of L4-L5 and L5-S1 stenosis. L5-S1 spondylosis with disk height collapse and facet hypertrophy, intractable leg and back pain. s/p 03/14 ALIF L5/S1, L4 to S1 decompression and L5/S1 instrumentation HTN DM e/lyte imbalance ( hyper K, hypo N a) anemia urinary retention Discharge Discharge Disposition Patient signed AMA Discharge Diagnoses: Discharge Instructions Discharge Instructions Special Instructions I have been assigned to complete a D/C Summary on this account. I was not involved in the patient management Roula Christine NP ([place]) Mar 22, 2017 08:51
== END 2017-03-20 03:15 | disposition left against medical advice (07) | DRG 460 ==
LOC: SDSOVERFLO 05:13 → 3E 17:14
PROC: 3E0U0GB Introduction of Recombinant Bone Morphogenetic Protein into Joints, Open Approach (ICD-10-PCS; principal; 2017-03-14 07:30)
PROC: 4A11X4G Monitoring of Peripheral Nervous Electrical Activity, Intraoperative, External Approach (ICD-10-PCS; principal; 2017-03-14 07:30)
PROC: 0SG30AJ Fusion of Lumbosacral Joint with Interbody Fusion Device, Posterior Approach, Anterior Column, Open Approach (ICD-10-PCS; principal; 2017-03-14 07:30)
PROC: 01NB0ZZ Release Lumbar Nerve, Open Approach (ICD-10-PCS; principal; 2017-03-14 07:30)
DX: M48.061 Spinal stenosis, lumbar region without neurogenic claudication (principal); E87.1 Hypo-osmolality and hyponatremia; I10 Essential (primary) hypertension; E87.5 Hyperkalemia; E11.9 Type 2 diabetes mellitus without complications; D64.9 Anemia, unspecified; M48.07 Spinal stenosis, lumbosacral region; M54.16 Radiculopathy, lumbar region; M54.17 Radiculopathy, lumbosacral region; E78.00 Pure hypercholesterolemia, unspecified; K21.9 Gastro-esophageal reflux disease without esophagitis; F32.9 Major depressive disorder, single episode, unspecified; R33.9 Retention of urine, unspecified; R50.82 Postprocedural fever
CPT/HCPCS: 36415; 71020; 72020; 76001; 80048; 81001; 82962; 85025; 86850; 86900; 86901; 86920; 87081; 87086; 94003; 94150; J1815; J2405; J2710; J2765; S5561

== ENCOUNTER 2017-03-21 18:53 | Inpatient (IN) | payer OTHER ==
[~2017-03-21] VITALS: Ht 167.6 cm; Wt 97.1 kg
[~2017-03-21 18:53] MED LIST: AMLODIPINE BESY10 MG ORAL; ASPIRIN81 MG ORAL; GABAPENTIN600 MG ORAL; LANTUS SOL100 UNIT/1 SUBQ; LISINOPRIL40 MG ORAL; LISPRO SUBQ; PANTOPRAZOLE SO40 MG ORAL; SIMVASTATIN10 MG ORAL
[2017-03-21 19:35] VITALS: BP 146/69
[2017-03-21 20:39] LABS: BASOPHILS % (AUTO) 0.7 % (0.0-2.0); EOSINOPHILS % (AUTO) 3.1 % (0.0-3.0); LYMPHOCYTES % (AUTO) 10.5 % (20.0-45.0); MEAN CORPUSCULAR HEMOGLOBIN 29.2 PG (27.0-31.0); MEAN CORPUSCULAR HGB CONC 33.8 G/DL (32.0-36.0); MEAN CORPUSCULAR VOLUME 86 FL (80-99); MEAN PLATELET VOLUME 6.3 FL (6.5-10.1); MONOCYTES % (AUTO) 12.1 % (1.0-10.0); NEUTROPHILS % (AUTO) 73.5 % (45.0-75.0); PLATELET COUNT 213 K/UL (150-450); RED BLOOD COUNT 3.16 M/UL (4.70-6.10); RED CELL DISTRIBUTION WIDTH 10.9 % (11.6-14.8); WHITE BLOOD COUNT 5.3 K/UL (4.8-10.8)
[2017-03-21 20:49] LABS: APPEARANCE,URINE CLEAR; KETONES,URINE 1+ (NEGATIVE); LEUKOCYTE ESTERASE ,URINE 2+ (NEGATIVE); NITRITE,URINE NEGATIVE (NEGATIVE); PH,URINE 5 (4.5-8.0); PROTEIN,URINE 4+ (NEGATIVE); UROBILINOGEN,URINE 4 MG/DL (0.0-1.0)
[2017-03-21 20:51] LABS: ANION GAP 8 mmol/L (5-15); CALCIUM 8.5 MG/DL (8.5-10.1); CARBON DIOXIDE 26 MMOL/L (21-32); CHLORIDE 99 MMOL/L (98-107); GLOMERULAR FILTRATION RATE > 60 mL/min (>60); POTASSIUM 4.5 MMOL/L (3.5-5.1); SODIUM 133 MMOL/L (136-145)
[2017-03-21 20:56] LABS: ALANINE AMINOTRANSFERASE 50 U/L (12-78); ALBUMIN/GLOBULIN RATIO 0.7 (1.0-2.7); AMORPHOUS SEDIMENT,UR FEW /LPF; ASPARTATE AMINO TRANSFERASE 63 U/L (15-37); BACTERIA,URINE MODERATE /HPF
[2017-03-21 21:35] VITALS: BP 145/64
[2017-03-21] MEDS ORDERED: Cefepime HCl 1 GM in D5W 55 ML IVPB ONE (22:15)
[2017-03-21] MEDS ORDERED: Cefepime 1gm vial ONE (22:21)
--- NOTE | 2017-03-21 23:09 | Emergency Room Report ---
History of Present Illness General Chief Complaint: Male Urogenital Problems Source: Patient Present Illness [facility] This patient underwent a spinal laminectomy one week ago. He states that he suffered urinary retention and has an indwelling Hernandez catheter. He states the day after his surgery he developed some scrotal swelling and inflammation. He states that since that time his scrotum has become significantly more swollen, erythematous and painful. He denies fever or chills. He denies nausea or vomiting. He denies abdominal pain. He has no other complaints. Allergies: Coded Allergies: No Known Allergies (Unverified , 03/10/17) Patient History Past Medical History: see triage record, DM, HTN, GERD Social History: Denies: smoking, alcohol use, drug use Reviewed Nursing Documentation: PMH: Agreed, PSxH: Agreed Nursing Documentation-PMH Hx Cardiac Problems: Yes Hx Hypertension: Yes Hx Diabetes: Yes Hx Cancer: No Hx Gastrointestinal Problems: Yes - gastritis Hx Neurological Problems: No Review of Systems All Other Systems: negative except mentioned in HPI Physical Exam Vital Signs Date Time Temp Pulse Resp B/P (MAP) Pulse Ox O2 Delivery O2 Flow Rate FiO2 03/21/17 19:27 98.1 92 16 125/67 99 Room Air Sp02 EP Interpretation: reviewed, normal General Appearance: no apparent distress, alert, GCS 15, non-toxic Head: normocephalic, atraumatic Eyes: bilateral eye normal inspection, bilateral eye PERRL ENT: hearing grossly normal, normal pharynx, no angioedema, normal voice Neck: full range of motion, supple/symm/no masses Respiratory: chest non-tender, lungs clear, normal breath sounds, speaking full sentences Cardiovascular #1: regular rate, rhythm, no edema Gastrointestinal: normal bowel sounds, non tender, soft, non-distended, no guarding, no rebound, other - Surgical sites healing well. Dressed. No e/o infection. Rectal: deferred Genitourinary: other - Enlarged scrotum bilaterally. +ecchymosis, erythema and TTP. Musculoskeletal: back normal, normal range of motion Neurologic: alert, oriented x3, responsive, motor strength/tone normal, sensory intact, speech normal Psychiatric: judgement/insight normal, memory normal, mood/affect normal, no suicidal/homicidal ideation Skin: well hydrated, other - See exam Medical Decision Making Diagnostic Impression: Primary Impression: Scrotal hematoma Additional Impression: Scrotal edema ER Course The patient has an enlarged scrotum with discoloration consistent with ecchymoses versus infection. The patient has an indwelling Hernandez catheter. Not sure whether this is related to traumatic orchitis/epididymitis or if this is infectious in etiology. Patient is very comfortable with uncontrolled pain. He was given broad-spectrum antibiotics and admitted for further evaluation and treatment and assessment by urology. Laboratory Tests Test 03/21/17 20:10 White Blood Count 5.3 K/UL (4.8-10.8) Red Blood Count 3.16 M/UL (4.70-6.10) L Hemoglobin 9.2 G/DL (14.2-18.0) L Hematocrit 27.3 % (42.0-52.0) L Mean Corpuscular Volume 86 FL (80-99) Mean Corpuscular Hemoglobin 29.2 PG (27.0-31.0) Mean Corpuscular Hemoglobin Concent 33.8 G/DL (32.0-36.0) Red Cell Distribution Width 10.9 % (11.6-14.8) L Platelet Count 213 K/UL (150-450) Mean Platelet Volume 6.3 FL (6.5-10.1) L Neutrophils (%) (Auto) 73.5 % (45.0-75.0) Lymphocytes (%) (Auto) 10.5 % (20.0-45.0) L Monocytes (%) (Auto) 12.1 % (1.0-10.0) H Eosinophils (%) (Auto) 3.1 % (0.0-3.0) H Basophils (%) (Auto) 0.7 % (0.0-2.0) Urine Color Yellow Urine Appearance Clear Urine pH 5 (4.5-8.0) Urine Specific [place] 1.015 (1.005-1.035) Urine Protein 4+ (NEGATIVE) H Urine Glucose (UA) 1+ (NEGATIVE) H Urine Ketones 1+ (NEGATIVE) H Urine Occult Blood 5+ (NEGATIVE) H Urine Nitrite Negative (NEGATIVE) Urine Bilirubin Negative (NEGATIVE) Urine Urobilinogen 4 MG/DL (0.0-1.0) H Urine Leukocyte Esterase 2+ (NEGATIVE) H Urine RBC 10-15 /HPF (0 - 0) H Urine WBC 5-10 /HPF (0 - 0) H Urine Squamous Epithelial Cells None /LPF (NONE/OCC) Urine Amorphous Sediment Few /LPF (NONE) H Urine Bacteria Moderate /HPF (NONE) H Sodium Level 133 MMOL/L (136-145) L Potassium Level 4.5 MMOL/L (3.5-5.1) Chloride Level 99 MMOL/L (98-107) Carbon Dioxide Level 26 MMOL/L (21-32) Anion Gap 8 mmol/L (5-15) Blood Urea Nitrogen 15 mg/dL (7-18) Creatinine 1.0 MG/DL (0.55-1.30) Estimate Glomerular Filtration Rate > 60 mL/min (>60) Glucose Level 168 MG/DL (74-106) H Calcium Level 8.5 MG/DL (8.5-10.1) Total Bilirubin 0.7 MG/DL (0.2-1.0) Aspartate Amino Transferase (AST) 63 U/L (15-37) H Alanine Aminotransferase (ALT) 50 U/L (12-78) Alkaline Phosphatase 147 U/L (46-116) H Total Protein 6.0 G/DL (6.4-8.2) L Albumin 2.4 G/DL (3.4-5.0) L Globulin 3.6 g/dL Albumin/Globulin Ratio 0.7 (1.0-2.7) L CT/MRI/US Diagnostic Results CT/MRI/US Diagnostic Results : Imaging Test Ordered: Scrotal US: Impression Scrotal ultrasound is pending at this time. Results to be followed up by the inpatient physician. Last Vital Signs Date Time Temp Pulse Resp B/P (MAP) Pulse Ox O2 Delivery O2 Flow Rate FiO2 03/21/17 21:35 98.1 83 17 145/64 99 Room Air Disposition: ADMITTED INPATIENT Condition: Stable Referrals: NON PHYSICIAN (PCP) MADDIE COOMBS D.O. Mar 21, 2017 23:08
[2017-03-21] MEDS ORDERED: ASPIRIN-LOW81 MG ORAL (23:11)
[2017-03-21] MEDS ORDERED: PANTOPRAZOLE SO40 MG ORAL (23:11)
[2017-03-21] MEDS ORDERED: TRIPLE ANTIBIO1 EAC1 TP (23:11)
[2017-03-21] MEDS ORDERED: FLUOXETINE HCL20 MG ORAL (23:11)
[2017-03-21] MEDS ORDERED: EUCERIN CREAM15 GM TOPIC (23:11)
[2017-03-21] MEDS ORDERED: CLOTRIMAZOLE15 GM TOPIC (23:11)
[2017-03-21 23:35] VITALS: BP 139/71
[2017-03-22] VITALS (7 sets, daily range): BP systolic 128–153; BP diastolic 65–76
[2017-03-22] MEDS ORDERED: Piperacillin/Tazobactam 3.375 GM in NS 110 ML IVPB SCH (06:30)
[2017-03-22] MEDS: NovoLOG Insulin Flexpen SUBQ SCH ×3 (07:54→16:36)
[2017-03-22] MEDS: Piperacillin/Tazobactam 3.375 GM in NS 55 ML IVPB SCH ×2 (08:35→16:19)
[2017-03-22] MEDS: Lisinopril 20mg tab ORAL SCH (08:42)
--- NOTE | 2017-03-22 09:39 | Consultation ---
History of Present Illness General Date patient seen: Mar 22, 2017 Time patient seen: 10:45 Chief Complaint: Male Urogenital Problems Present Illness HPI 56 y/o M with hx of DM2, HTN, GERD presents to ED on 03/21 with scrotal swelling , erythema and pain. Patient had a spinal laminectomy 1 week ago and subsequently had urinary retention s/p placement of indwelling shearer cahteter. 1 day after surgery he noticed scrotal swelling and inflammation which has progressively worsened Denies f/c, n/v, abd pain. afebrile, no leukocytosis. Started on Zosyn. Allergies: Coded Allergies: No Known Allergies (Unverified , 03/10/17) Medication History Scheduled Amlodipine Besylate* (Amlodipine Besylate*), 10 MG ORAL DAILY, (Reported) Aspirin (Aspirin EC), 81 MG ORAL DAILY, (Reported) Aspirin* (Aspirin*), 81 MG ORAL DAILY, (Reported) Clotrimazole* (Lotrimin*), 1 APPLIC TOPIC TWICE A DAY, (Reported) Eucerin (Eucerin Creme), 1 APPLIC TOPIC BID, (Reported) Fluoxetine Hcl* (Fluoxetine Hcl*), 20 MG ORAL DAILY, (Reported) Gabapentin* (Gabapentin*), 600 MG ORAL THREE TIMES A DAY, (Reported) Insulin Glargine (Lantus), 30 SUBQ BEDTIME, (Reported) Lisinopril* (Lisinopril*), 40 MG ORAL DAILY, (Reported) Neomy Sulf/Bacitrac Zn/Poly (Triple Antibiotic Ointment), 1 EACH TP QID, ( Reported) Pantoprazole* (Pantoprazole*), 40 MG ORAL DAILY, (Reported) Pantoprazole* (Pantoprazole*), 40 MG ORAL BID, (Reported) Simvastatin (Zocor), 10 MG ORAL BEDTIME, (Reported) [Lispro], 6 UNITS SUBQ TID, (Reported) Patient History Healthcare decision maker Resuscitation status Full Code Advanced Directive on File No Patient History Narrative PMhx: as above Shx:Denies: smoking, alcohol use, drug use Fhx: non contributory Review of Systems All Other Systems: negative except mentioned in HPI Physical Exam Physical Exam Narrative General Appearance: no apparent distress, alert, non-toxic HEENT: normocephalic, atraumatic, bilateral eye PERRL, normal pharynx Neck: full range of motion, supple/symm/no masses Respiratory: chest non-tender, lungs clear, normal breath sounds Cardiovascular regular rate, rhythm, no edema Gastrointestinal: normal bowel sounds, non tender, soft, non-distended, no guarding, no rebound, other - Surgical sites healing well. Dressed. No e/o infection. Genitourinary: other - Enlarged scrotum bilaterally. +ecchymosis, erythema and TTP. Musculoskeletal: back normal, normal range of motion Neurologic: alert, oriented x3, responsive, motor strength/tone normal, sensory intact, speech normal Skin: well hydrated Last 24 Hour Vital Signs Date Time Temp Pulse Resp B/P (MAP) Pulse Ox O2 Delivery O2 Flow Rate FiO2 03/22/17 09:26 85 144/76 03/22/17 08:42 144/76 03/22/17 08:00 98.1 85 20 144/76 98 Room Air 03/22/17 04:00 98.3 83 19 153/74 96 03/22/17 01:45 97.8 81 19 137/70 98 03/22/17 01:44 98.4 88 19 137/71 98 Room Air 03/22/17 01:40 98.1 81 19 146/67 99 Room Air 03/21/17 23:35 97.9 75 17 139/71 99 Room Air 03/21/17 21:35 98.1 83 17 145/64 99 Room Air 03/21/17 19:35 98.1 82 16 146/69 99 Room Air 03/21/17 19:27 98.1 92 16 125/67 99 Room Air Intake and Output 03/22/17 03/23/17 19:00 07:00 Intake Total 450 ml Balance 450 ml Intake Oral 450 ml Laboratory Tests Test 03/21/17 20:10 White Blood Count 5.3 K/UL (4.8-10.8) Red Blood Count 3.16 M/UL (4.70-6.10) L Hemoglobin 9.2 G/DL (14.2-18.0) L Hematocrit 27.3 % (42.0-52.0) L Mean Corpuscular Volume 86 FL (80-99) Mean Corpuscular Hemoglobin 29.2 PG (27.0-31.0) Mean Corpuscular Hemoglobin Concent 33.8 G/DL (32.0-36.0) Red Cell Distribution Width 10.9 % (11.6-14.8) L Platelet Count 213 K/UL (150-450) Mean Platelet Volume 6.3 FL (6.5-10.1) L Neutrophils (%) (Auto) 73.5 % (45.0-75.0) Lymphocytes (%) (Auto) 10.5 % (20.0-45.0) L Monocytes (%) (Auto) 12.1 % (1.0-10.0) H Eosinophils (%) (Auto) 3.1 % (0.0-3.0) H Basophils (%) (Auto) 0.7 % (0.0-2.0) Urine Color Yellow Urine Appearance Clear Urine pH 5 (4.5-8.0) Urine Specific [place] 1.015 (1.005-1.035) Urine Protein 4+ (NEGATIVE) H Urine Glucose (UA) 1+ (NEGATIVE) H Urine Ketones 1+ (NEGATIVE) H Urine Occult Blood 5+ (NEGATIVE) H Urine Nitrite Negative (NEGATIVE) Urine Bilirubin Negative (NEGATIVE) Urine Urobilinogen 4 MG/DL (0.0-1.0) H Urine Leukocyte Esterase 2+ (NEGATIVE) H Urine RBC 10-15 /HPF (0 - 0) H Urine WBC 5-10 /HPF (0 - 0) H Urine Squamous Epithelial Cells None /LPF (NONE/OCC) Urine Amorphous Sediment Few /LPF (NONE) H Urine Bacteria Moderate /HPF (NONE) H Sodium Level 133 MMOL/L (136-145) L Potassium Level 4.5 MMOL/L (3.5-5.1) Chloride Level 99 MMOL/L (98-107) Carbon Dioxide Level 26 MMOL/L (21-32) Anion Gap 8 mmol/L (5-15) Blood Urea Nitrogen 15 mg/dL (7-18) Creatinine 1.0 MG/DL (0.55-1.30) Estimat Glomerular Filtration Rate > 60 mL/min (>60) Glucose Level 168 MG/DL (74-106) H Calcium Level 8.5 MG/DL (8.5-10.1) Total Bilirubin 0.7 MG/DL (0.2-1.0) Aspartate Amino Transf (AST/SGOT) 63 U/L (15-37) H Alanine Aminotransferase (ALT/SGPT) 50 U/L (12-78) Alkaline Phosphatase 147 U/L (46-116) H Total Protein 6.0 G/DL (6.4-8.2) L Albumin 2.4 G/DL (3.4-5.0) L Globulin 3.6 g/dL Albumin/Globulin Ratio 0.7 (1.0-2.7) L Height (Feet): 5 Height (Inches): 6.00 Weight (Pounds): 214 Medications Current Medications Medications (Trade) Dose Ordered Sig/Tyrone Route PRN Reason Start Time Stop Time Status Last Admin Dose Admin Amlodipine Besylate (Norvasc) 10 mg DAILY ORAL 03/22/17 09:00 04/21/17 08:59 03/22/17 09:26 Atorvastatin Calcium (Lipitor) 10 mg BEDTIME ORAL 03/22/17 21:00 04/21/17 20:59 Fluoxetine HCl (PROzac) 20 mg DAILY ORAL 03/22/17 09:00 04/21/17 08:59 03/22/17 08:42 Gabapentin (Neurontin) 600 mg THREE TIMES A DAY ORAL 03/22/17 09:00 04/21/17 08:59 03/22/17 08:42 Insulin Aspart (NovoLOG) 6 units NOVOTIAC SUBQ 03/22/17 06:30 04/21/17 06:29 03/22/17 07:54 Insulin Detemir (Levemir) 30 units BEDTIME SUBQ 03/22/17 21:00 04/21/17 20:59 Lisinopril (Prinivil) 40 mg DAILY ORAL 03/22/17 09:00 04/21/17 08:59 03/22/17 08:42 Pantoprazole (Protonix) 40 mg BID ORAL 03/22/17 09:00 04/21/17 08:59 03/22/17 08:42 Piperacillin Sod/ Tazobactam Sod 3.375 gm/Sodium Chloride 55 ml @ 110 mls/hr Q8H IVPB 03/22/17 08:30 03/29/17 06:29 03/22/17 08:35 Assessment/Plan Assessment/Plan Abx: Zosyn 03/22- Cefepime 03/21 Assesment: Scrotal swelling- r/o underlying infectious process -u/a WBC 5-10, nit neg, leuk +2; ucx p -Scrotal us p Afebrile, no leukocytosis S/p Spinal laminectomy 03/14/17 DM2, HTN, GERD Plan: -Continue Zosyn for now pending cultures and scrotal US -Uro evaluation -f/u cx -GC/CL urine, HIV test -Monitor CBC/BMP, temperatures THank you for this consulation. Will continue to follow along with you. Discussed with Jacqueline Hussein M.D. Mar 22, 2017 09:39
[2017-03-22 09:53] LABS: BASOPHILS % (AUTO) 0.8 % (0.0-2.0); EOSINOPHILS % (AUTO) 2.8 % (0.0-3.0); LYMPHOCYTES % (AUTO) 9.2 % (20.0-45.0); MEAN CORPUSCULAR HEMOGLOBIN 28.9 PG (27.0-31.0); MEAN CORPUSCULAR HGB CONC 33.3 G/DL (32.0-36.0); MEAN CORPUSCULAR VOLUME 87 FL (80-99); MEAN PLATELET VOLUME 6.9 FL (6.5-10.1); MONOCYTES % (AUTO) 11.2 % (1.0-10.0); PLATELET COUNT 203 K/UL (150-450); RED BLOOD COUNT 3.08 M/UL (4.70-6.10); RED CELL DISTRIBUTION WIDTH 11.2 % (11.6-14.8); WHITE BLOOD COUNT 4.9 K/UL (4.8-10.8)
[2017-03-22 10:11] LABS: ALANINE AMINOTRANSFERASE 46 U/L (12-78); ALBUMIN/GLOBULIN RATIO 0.7 (1.0-2.7); ANION GAP 4 mmol/L (5-15); ASPARTATE AMINO TRANSFERASE 52 U/L (15-37); CALCIUM 8.5 MG/DL (8.5-10.1); CARBON DIOXIDE 29 MMOL/L (21-32); CHLORIDE 100 MMOL/L (98-107); CREATININE 0.9 MG/DL (0.55-1.30); GLOMERULAR FILTRATION RATE > 60 mL/min (>60); MAGNESIUM 1.7 MG/DL (1.8-2.4); PHOSPHORUS 4.7 MG/DL (2.5-4.9); POTASSIUM 4.4 MMOL/L (3.5-5.1); SODIUM 133 MMOL/L (136-145); TOTAL PROTEIN 5.6 G/DL (6.4-8.2)
[2017-03-22 11:46] LABS: APPEARANCE,URINE CLEAR; KETONES,URINE NEGATIVE (NEGATIVE); LEUKOCYTE ESTERASE ,URINE 1+ (NEGATIVE); NITRITE,URINE NEGATIVE (NEGATIVE); PH,URINE 8 (4.5-8.0); PROTEIN,URINE 2+ (NEGATIVE); UROBILINOGEN,URINE 1 MG/DL (0.0-1.0)
--- NOTE | 2017-03-22 11:49 | Diagnostic Imaging Report ---
Indications: PAIN testicular pain and swelling Technique: Grayscale and duplex images of the scrotum Comparison:None Findings:The right testicle measures 3cm in length. It demonstrates normal echogenicity. Normal Doppler flow. Normal epididymis. There is a small hydrocele. The left testicle measures 3.6 cm in length. It demonstrates normal echogenicity and normal Doppler flow. There is small cyst within the epididymal head. There is a small to moderate hydrocele. There is scrotal wall swelling bilaterally. Impression: No acute testicular pathology. Negative for evidence of torsion, epididymitis, orchitis Bilateral scrotal wall swelling, nonspecific as regards etiology Bilateral hydroceles Small cyst within the left epididymal head, likely a small epididymal cyst or spermatocele
[2017-03-22] MEDS ORDERED: Milk of Magnesia 30ml Ud ORAL PRN (12:45)
[2017-03-22 12:56] LABS: BACTERIA,URINE OCCASIONAL /HPF; SQUAMOUS EPITHELIAL CELL,UR OCCASIONAL /LPF (NONE/OCC)
[2017-03-22] MEDS: Docusate 100mg cap ORAL SCH (17:11)
[2017-03-22] MEDS: Tamsulosin 0.4mg cap ORAL SCH (20:52)
[2017-03-22] MEDS: Levemir Flexpen SUBQ SCH (20:57)
--- NOTE | 2017-03-22 23:30 | History and Physical Report ---
DATE OF ADMISSION: 03/21/2017 REASON FOR ADMISSION: Scrotal edema. HISTORY OF PRESENT ILLNESS: This is a 56-year-old male, who was brought in for evaluation. The patient signed out against medical advice due to his own accord. The patient, at that point, went to [facility] and thereafter to [facility] and now returns for ongoing care and management. The patient has scrotal edema. The patient also notes some constipation, but no significant abdominal distention. The patient does admit to coitus. The patient is status post laminectomy approximately one week ago. The patient is doing well, otherwise, comfortable and alert. No significant back pain. PAST MEDICAL HISTORY: Hypertension, diabetes, reflux disease, hypercholesterolemia, and likely prostatism. MEDICATIONS: Reviewed. ALLERGIES: Reviewed. SOCIAL HISTORY: The patient is otherwise comfortable. . Does have children. PHYSICAL EXAMINATION: GENERAL: A well-developed male, comfortable. VITAL SIGNS: Otherwise stable. LUNGS: Otherwise clear. CARDIAC: No S1 and S2. Regular rate and rhythm. ABDOMEN: Soft and nontender. EXTREMITIES: No edema. GENITOURINARY: Scrotal edema. Hernandez catheter in place. LABORATORY DATA: Reviewed and otherwise is fairly benign. IMPRESSION: 1. Urinary retention. 2. Scrotal edema. 3. Diabetes. 4. Hypercholesterolemia. PLAN: Resume medications. We will add Flomax. Urological evaluation by Dr. Mcghee noted. Care discussed. Further, no significant intervention. Just scrotal elevation. We will attempt voiding trial within the next 48 hours if stable, and thereafter, discharge home. No clear need for antibiotics, although we will follow and adjust pending re-evaluation. Reyes Thomas M.D. DR: KISHAN JOB#: [id number] CC:
[2017-03-23] VITALS: BP 139/74
[2017-03-23] MEDS: Piperacillin/Tazobactam 3.375 GM in NS 55 ML IVPB SCH ×2 (00:30→08:31)
[2017-03-23 04:00] VITALS: BP 110/54
[2017-03-23] MEDS: NovoLOG Insulin Flexpen SUBQ SCH ×3 (06:22→16:43)
[2017-03-23 07:55] LABS: MEAN CORPUSCULAR HEMOGLOBIN 29.7 PG (27.0-31.0); MEAN CORPUSCULAR HGB CONC 33.9 G/DL (32.0-36.0); MEAN CORPUSCULAR VOLUME 88 FL (80-99); MEAN PLATELET VOLUME 6.2 FL (6.5-10.1); PLATELET COUNT 216 K/UL (150-450); RED BLOOD COUNT 3.41 M/UL (4.70-6.10); RED CELL DISTRIBUTION WIDTH 11.6 % (11.6-14.8); WHITE BLOOD COUNT 4.8 K/UL (4.8-10.8)
[2017-03-23 08:00] VITALS: BP 116/67
[2017-03-23 08:03] LABS: INR 1.1 (0.9-1.1); PROTHROMBIN TIME 11.2 SEC (9.30-11.50)
[2017-03-23 08:08] LABS: LACTATE DEHYDROGENASE 248 U/L (81-234)
[2017-03-23] MEDS: Docusate 100mg cap ORAL SCH ×2 (08:27→17:13)
[2017-03-23] MEDS: Lisinopril 20mg tab ORAL SCH (08:28)
[2017-03-23 08:35] LABS: FOLIC ACID 18.3 NG/ML (8.6-58.9); IRON 43 ug/dL (50-175); TOTAL IRON BINDING CAPACITY 200 ug/dL (250-450)
--- NOTE | 2017-03-23 08:38 | General Progress Note ---
Assessment/Plan Assessment/Plan 1. Urinary retention. 2. Scrotal edema. 3. Diabetes. 4. Hypercholesterolemia. PLAN PT elevate scrotum dc shearer in am dressing change venous US ambulate dc antibiotics iv Subjective Allergies: Coded Allergies: No Known Allergies (Unverified , 03/10/17) Subjective improved edema scrotum Objective Last 24 Hour Vital Signs Date Time Temp Pulse Resp B/P (MAP) Pulse Ox O2 Delivery O2 Flow Rate FiO2 03/23/17 08:29 84 116/67 03/23/17 08:28 116/67 03/23/17 04:01 Room Air 03/23/17 04:00 98.0 73 18 110/54 94 03/23/17 00:01 Room Air 03/23/17 00:00 98.0 81 18 139/74 95 03/22/17 20:01 Room Air 03/22/17 20:00 97.8 78 19 137/65 96 03/22/17 16:00 98.9 81 19 131/76 97 Room Air 03/22/17 12:00 98.0 81 19 128/70 99 Room Air 03/22/17 09:26 85 144/76 03/22/17 08:42 144/76 Laboratory Tests 03/22/17 09:45: White Blood Count 4.9, Red Blood Count 3.08L, Hemoglobin 8.9L, Hematocrit 26.7L , Mean Corpuscular Volume 87, Mean Corpuscular Hemoglobin 28.9, Mean Corpuscular Hemoglobin Concent 33.3, Red Cell Distribution Width 11.2L, Platelet Count 203, Mean Platelet Volume 6.9, Neutrophils (%) (Auto) 76.0H, Lymphocytes (%) (Auto) 9.2L, Monocytes (%) (Auto) 11.2H, Eosinophils (%) (Auto) 2.8, Basophils (%) (Auto) 0.8, Sodium Level 133L, Potassium Level 4.4, Chloride Level 100, Carbon Dioxide Level 29, Anion Gap 4L, Blood Urea Nitrogen 14, Creatinine 0.9, Estimat Glomerular Filtration Rate > 60, Glucose Level 156H, Calcium Level 8.5, Phosphorus Level 4.7, Magnesium Level 1.7L, Total Bilirubin 0.6, Aspartate Amino Transf (AST/SGOT) 52H, Alanine Aminotransferase (ALT/SGPT) 46, Alkaline Phosphatase 131H, Total Protein 5.6L, Albumin 2.3L, Globulin 3.3, Albumin/Globulin Ratio 0.7L 03/22/17 11:10: Urine Color Pale yellow, Urine Appearance Clear, Urine pH 8, Urine Specific [place] 1.015, Urine Protein 2+H, Urine Glucose (UA) Negative, Urine Ketones Negative, Urine Occult Blood 3+H, Urine Nitrite Negative, Urine Bilirubin Negative, Urine Urobilinogen 1H, Urine Leukocyte Esterase 1+H, Urine RBC 2-4H, Urine WBC 2-4, Urine Squamous Epithelial Cells Occasional, Urine Bacteria Occasional, Chlamydia trachomatis RNA [Pending], Neisseria gonorrhoeae RNA [ Pending] 03/23/17 07:20: Prothrombin Time 11.2, Prothromb Time International Ratio 1.1, Activated Partial Thromboplast Time 28, Iron Level 43L, Total Iron Binding Capacity 200L, Percent Iron Saturation 22, Unsaturated Iron Binding 157, Lactate Dehydrogenase 248H, Vitamin B12 Level 1128H, Folate 18.3, HIV (1&2) Antibody Rapid Negative 03/23/17 07:25: White Blood Count 4.8, Red Blood Count 3.41L, Hemoglobin 10.1L, Hematocrit 29.9L , Mean Corpuscular Volume 88, Mean Corpuscular Hemoglobin 29.7, Mean Corpuscular Hemoglobin Concent 33.9, Red Cell Distribution Width 11.6, Platelet Count 216, Mean Platelet Volume 6.2L, Neutrophils (%) (Auto) , Lymphocytes (%) ( Auto) , Monocytes (%) (Auto) , Eosinophils (%) (Auto) , Basophils (%) (Auto) , Neutrophils % (Manual) [Pending], Lymphocytes % (Manual) [Pending], Platelet Estimate [Pending], Platelet Morphology [Pending], Erythrocyte Sedimentation Rate [Pending], Reticulocyte Count [Pending] Height (Feet): 5 Height (Inches): 6.00 Weight (Pounds): 214 Objective WDWN NAD clear breath sounds bilaterally without rhonchi or wheeze [id number] without MRG NABS nontender no HSM no CCE nonfocal scrotal edema and shearer in place NILDA MERINO Mar 23, 2017 08:38
[2017-03-23 09:09] LABS: ERYTHROCYTE SEDIMENTATION RATE 92 MM/HR (0-20)
[2017-03-23 09:36] LABS: BAND NEUTROPHILS % (MANUAL) 0 % (0-8); BASOPHILS % (MANUAL) 0 % (0-2); EOSINOPHILS % (MANUAL) 5 % (0-3); LYMPHOCYTES % (MANUAL) 21 % (20-45); NEUTROPHILS % (MANUAL) 67 % (45-75); PLATELET ESTIMATE ADEQUATE; PLATELET MORPHOLOGY NORMAL; TOTAL CELLS COUNTED 100
[2017-03-23 09:37] LABS: HYPOCHROMASIA 1+
--- NOTE | 2017-03-23 10:21 | Infectious Diseases Prog Note ---
Assessment/Plan Assessment/Plan Abx: Zosyn 03/22- Cefepime 03/21 Assesment: Scrotal swelling- No obvious serious infectious process at present; ?scrotal cellulitis vs only edema -u/a WBC 5-10, nit neg, leuk +2; ucx NTD; repeat u/a no pyuria -Scrotal us :No acute testicular pathology. Negative for evidence of torsion, epididymitis, orchitis. Bilateral scrotal wall swelling, nonspecific as regards etiology. Bilateral hydroceles. Small cyst within the left epididymal head, likely a small epididymal cyst or spermatocele -HIV ag/ab neg -Gc/Cl p Afebrile, no leukocytosis S/p Spinal laminectomy 03/14/17 DM2, HTN, GERD Plan: -Noticed Zosyn #2 to Keflex by PCP; ok to continue for total of 5-7 days for possible scrotal cellulitis -Uro f/u: recommend scrotal elevation -f/u cx, GC/CL urine -Monitor CBC/BMP, temperatures THank you for this consultation. Will continue to follow along with you. Discussed with RN. Subjective Allergies: Coded Allergies: No Known Allergies (Unverified , 03/10/17) Subjective afebrile no leukocytosis US reassuring Objective Vital Signs Last 24 Hour Vital Signs Date Time Temp Pulse Resp B/P (MAP) Pulse Ox O2 Delivery O2 Flow Rate FiO2 03/23/17 08:29 84 116/67 03/23/17 08:28 116/67 03/23/17 08:00 98.3 84 19 116/67 98 03/23/17 04:01 Room Air 03/23/17 04:00 98.0 73 18 110/54 94 03/23/17 00:01 Room Air 03/23/17 00:00 98.0 81 18 139/74 95 03/22/17 20:01 Room Air 03/22/17 20:00 97.8 78 19 137/65 96 03/22/17 16:00 98.9 81 19 131/76 97 Room Air 03/22/17 12:00 98.0 81 19 128/70 99 Room Air Height (Feet): 5 Height (Inches): 6.00 Weight (Pounds): 214 Objective General Appearance: no apparent distress, alert, non-toxic HEENT: normocephalic, atraumatic, bilateral eye PERRL, normal pharynx Neck: full range of motion, supple/symm/no masses Respiratory: chest non-tender, lungs clear, normal breath sounds Cardiovascular regular rate, rhythm, no edema Gastrointestinal: normal bowel sounds, non tender, soft, non-distended, no guarding, no rebound, other - Surgical sites healing well. Dressed. No e/o infection. Genitourinary: other - Enlarged scrotum bilaterally. +ecchymosis, erythema and TTP. Musculoskeletal: back normal, normal range of motion Neurologic: alert, oriented x3, responsive, motor strength/tone normal, sensory intact, speech normal Skin: well hydrated Microbiology Date/Time Source Procedure Growth Status 03/21/17 20:10 Urine,Clean Catch Urine Culture - Preliminary NO GROWTH AFTER 24 HOURS Resulted Laboratory Tests Test 03/22/17 11:10 03/23/17 07:20 03/23/17 07:25 Urine Color Pale yellow Urine Appearance Clear Urine pH 8 (4.5-8.0) Urine Specific [place] 1.015 (1.005-1.035) Urine Protein 2+ (NEGATIVE) H Urine Glucose (UA) Negative (NEGATIVE) Urine Ketones Negative (NEGATIVE) Urine Occult Blood 3+ (NEGATIVE) H Urine Nitrite Negative (NEGATIVE) Urine Bilirubin Negative (NEGATIVE) Urine Urobilinogen 1 MG/DL (0.0-1.0) H Urine Leukocyte Esterase 1+ (NEGATIVE) H Urine RBC 2-4 /HPF (0 - 0) H Urine WBC 2-4 /HPF (0 - 0) Urine Squamous Epithelial Cells Occasional /LPF Urine Bacteria Occasional /HPF (NONE) Chlamydia trachomatis RNA Pending Neisseria gonorrhoeae RNA Pending Prothrombin Time 11.2 SEC (9.30-11.50) Prothromb Time International Ratio 1.1 (0.9-1.1) Activated Partial Thromboplast Time 28 SEC (23-33) Iron Level 43 ug/dL (50-175) L Total Iron Binding Capacity 200 ug/dL (250-450) L Percent Iron Saturation 22 % (15-50) Unsaturated Iron Binding 157 ug/dL (112-346) Lactate Dehydrogenase 248 U/L (81-234) H Vitamin B12 Level 1128 PG/ML (193-986) H Folate 18.3 NG/ML (8.6-58.9) HIV (1&2) Antibody Rapid Negative (NEGATIVE) White Blood Count 4.8 K/UL (4.8-10.8) Red Blood Count 3.41 M/UL (4.70-6.10) L Hemoglobin 10.1 G/DL (14.2-18.0) L Hematocrit 29.9 % (42.0-52.0) L Mean Corpuscular Volume 88 FL (80-99) Mean Corpuscular Hemoglobin 29.7 PG (27.0-31.0) Mean Corpuscular Hemoglobin Concent 33.9 G/DL (32.0-36.0) Red Cell Distribution Width 11.6 % (11.6-14.8) Platelet Count 216 K/UL (150-450) Mean Platelet Volume 6.2 FL (6.5-10.1) L Neutrophils (%) (Auto) % (45.0-75.0) Lymphocytes (%) (Auto) % (20.0-45.0) Monocytes (%) (Auto) % (1.0-10.0) Eosinophils (%) (Auto) % (0.0-3.0) Basophils (%) (Auto) % (0.0-2.0) Differential Total Cells Counted 100 Neutrophils % (Manual) 67 % (45-75) Lymphocytes % (Manual) 21 % (20-45) Monocytes % (Manual) 7 % (1-10) Eosinophils % (Manual) 5 % (0-3) H Basophils % (Manual) 0 % (0-2) Band Neutrophils 0 % (0-8) Platelet Estimate Adequate Platelet Morphology Normal Hypochromasia 1+ Erythrocyte Sedimentation Rate 92 MM/HR (0-20) H Reticulocyte Count Pending Current Medications Medications (Trade) Dose Ordered Sig/Tyrone Route PRN Reason Start Time Stop Time Status Last Admin Dose Admin Amlodipine Besylate (Norvasc) 10 mg DAILY ORAL 03/22/17 09:00 04/21/17 08:59 03/23/17 08:29 Atorvastatin Calcium (Lipitor) 10 mg BEDTIME ORAL 03/22/17 21:00 04/21/17 20:59 03/22/17 20:52 Bisacodyl (Dulcolax) 10 mg DAILYPRN PRN RECTAL Constipation 03/22/17 12:45 04/21/17 12:44 Cephalexin (Keflex) 500 mg FOUR TIMES A DAY ORAL 03/23/17 13:00 03/30/17 12:59 Docusate Sodium (Colace) 100 mg TWICE A DAY ORAL 03/22/17 18:00 04/21/17 17:59 03/23/17 08:27 Fluoxetine HCl (PROzac) 20 mg DAILY ORAL 03/22/17 09:00 04/21/17 08:59 03/23/17 08:27 Gabapentin (Neurontin) 600 mg THREE TIMES A DAY ORAL 03/22/17 09:00 04/21/17 08:59 03/23/17 08:27 Insulin Aspart (NovoLOG) 6 units NOVOTIAC SUBQ 03/22/17 06:30 04/21/17 06:29 03/22/17 16:36 Insulin Detemir (Levemir) 30 units BEDTIME SUBQ 03/22/17 21:00 04/21/17 20:59 03/22/17 20:57 Lisinopril (Prinivil) 40 mg DAILY ORAL 03/22/17 09:00 04/21/17 08:59 03/23/17 08:28 Magnesium Hydroxide (Mom) 30 ml DAILYPRN PRN ORAL Constipation 03/22/17 12:45 04/21/17 12:44 Pantoprazole (Protonix) 40 mg BID ORAL 03/22/17 09:00 04/21/17 08:59 03/23/17 08:28 Tamsulosin HCl (Flomax) 0.8 mg BEDTIME ORAL 03/22/17 21:00 04/21/17 20:59 03/22/17 20:52 Jacqueline Stuart M.D. Mar 23, 2017 10:21
[2017-03-23 10:52] LABS: PATH BLOOD SMEAR/OMC SENT TO PATHOLOGIST; RETICULOCYTE COUNT 2.4 % (0.0-2.0)
[2017-03-23 12:00] VITALS: BP 119/66
[2017-03-23] MEDS: Cephalexin 500mg cap ORAL SCH ×3 (12:34→20:34)
[2017-03-23] MEDS ORDERED: Tubing IV Secondary IV ONE (13:32)
[2017-03-23] MEDS ORDERED: NS 275ml ONE (13:32)
[2017-03-23 16:00] VITALS: BP 127/66
[2017-03-23 20:00] VITALS: BP 126/69
[2017-03-23] MEDS: Tamsulosin 0.4mg cap ORAL SCH (20:35)
[2017-03-23] MEDS: Levemir Flexpen SUBQ SCH (20:41)
[2017-03-24] VITALS: BP 124/67
[2017-03-24 04:00] VITALS: BP 118/67
[2017-03-24] MEDS: NovoLOG Insulin Flexpen SUBQ SCH ×3 (06:05→17:16)
[2017-03-24 08:00] VITALS: BP 116/63
--- NOTE | 2017-03-24 08:17 | General Progress Note ---
Assessment/Plan Assessment/Plan 1. Urinary retention. 2. Scrotal edema. 3. Diabetes. 4. Hypercholesterolemia. PLAN PT elevate scrotum dc shearer and monitor dressing change venous US ambulate dc antibiotics iv Subjective Allergies: Coded Allergies: No Known Allergies (Unverified , 03/10/17) Subjective improved edema scrotum Objective Last 24 Hour Vital Signs Date Time Temp Pulse Resp B/P (MAP) Pulse Ox O2 Delivery O2 Flow Rate FiO2 03/24/17 04:01 Room Air 03/24/17 04:00 97.9 76 21 118/67 98 03/24/17 00:01 Room Air 03/24/17 00:00 98.0 75 21 124/67 96 Room Air 03/23/17 20:01 Room Air 03/23/17 20:00 99.3 77 21 126/69 95 Room Air 03/23/17 18:18 97 Room Air 03/23/17 16:00 98.4 78 19 127/66 97 03/23/17 12:00 97 Room Air 03/23/17 12:00 98.8 76 19 119/66 97 03/23/17 08:29 84 116/67 03/23/17 08:28 116/67 Laboratory Tests 03/23/17 21:00: Stool Occult Blood [Pending] Height (Feet): 5 Height (Inches): 6.00 Weight (Pounds): 214 Objective WDWN NAD clear breath sounds bilaterally without rhonchi or wheeze [id number] without MRG NABS nontender no HSM no CCE nonfocal scrotal edema and shearer in place NILDA MERINO Mar 24, 2017 08:17
[2017-03-24] MEDS: Cephalexin 500mg cap ORAL SCH ×4 (08:38→21:44)
[2017-03-24] MEDS: Lisinopril 20mg tab ORAL SCH (08:39)
[2017-03-24] MEDS: Docusate 100mg cap ORAL SCH ×2 (08:39→17:13)
--- NOTE | 2017-03-24 11:33 | Infectious Diseases Prog Note ---
Assessment/Plan Assessment/Plan Assesment: Scrotal swelling- No obvious serious infectious process at present; ?scrotal cellulitis vs only edema -u/a WBC 5-10, nit neg, leuk +2; ucx NTD; repeat u/a no pyuria -Scrotal us :No acute testicular pathology. Negative for evidence of torsion, epididymitis, orchitis. Bilateral scrotal wall swelling, nonspecific as regards etiology. Bilateral hydroceles. Small cyst within the left epididymal head, likely a small epididymal cyst or spermatocele -HIV ag/ab neg -Gc/Cl p Afebrile, no leukocytosis S/p Spinal laminectomy 03/14/17 DM2, HTN, GERD Plan: -Contiue Keflex abx d#3/5-7 for possible scrotal cellulitis -03/23 SP Zosyn #2 -03/21 Cefepime x1 -Uro f/u: recommend scrotal elevation -f/u cx, GC/CL urine -Monitor CBC/BMP, temperatures THank you for this consultation. Will continue to follow along with you. Discussed with RN. Subjective Allergies: Coded Allergies: No Known Allergies (Unverified , 03/10/17) Subjective afebrile no leukocytosis feels better, scrotal swelling improving Objective Vital Signs Last 24 Hour Vital Signs Date Time Temp Pulse Resp B/P (MAP) Pulse Ox O2 Delivery O2 Flow Rate FiO2 03/24/17 08:39 118/67 03/24/17 08:39 76 118/67 03/24/17 08:00 97.9 80 19 116/63 97 03/24/17 04:01 Room Air 03/24/17 04:00 97.9 76 21 118/67 98 03/24/17 00:01 Room Air 03/24/17 00:00 98.0 75 21 124/67 96 Room Air 03/23/17 20:01 Room Air 03/23/17 20:00 99.3 77 21 126/69 95 Room Air 03/23/17 18:18 97 Room Air 03/23/17 16:00 98.4 78 19 127/66 97 03/23/17 12:00 97 Room Air 03/23/17 12:00 98.8 76 19 119/66 97 Height (Feet): 5 Height (Inches): 6.00 Weight (Pounds): 214 Objective General Appearance: no apparent distress, alert, non-toxic HEENT: normocephalic, atraumatic, bilateral eye PERRL, normal pharynx Neck: full range of motion, supple/symm/no masses Respiratory: chest non-tender, lungs clear, normal breath sounds Cardiovascular regular rate, rhythm, no edema Gastrointestinal: normal bowel sounds, non tender, soft, non-distended, no guarding, no rebound, other - Surgical sites healing well. Dressed. No e/o infection. Genitourinary: other - Enlarged scrotum bilaterally; improving Musculoskeletal: back normal, normal range of motion Neurologic: alert, oriented x3, responsive, motor strength/tone normal, sensory intact, speech normal Skin: well hydrated Microbiology Date/Time Source Procedure Growth Status 03/21/17 20:10 Urine,Clean Catch Urine Culture - Final NO GROWTH AFTER 48 HOURS Complete Laboratory Tests Test 03/23/17 21:00 Stool Occult Blood Negative (NEGATIVE) Current Medications Medications (Trade) Dose Ordered Sig/Tyrone Route PRN Reason Start Time Stop Time Status Last Admin Dose Admin Amlodipine Besylate (Norvasc) 10 mg DAILY ORAL 03/22/17 09:00 04/21/17 08:59 03/24/17 08:39 Atorvastatin Calcium (Lipitor) 10 mg BEDTIME ORAL 03/22/17 21:00 04/21/17 20:59 03/23/17 20:35 Bisacodyl (Dulcolax) 10 mg DAILYPRN PRN RECTAL Constipation 03/22/17 12:45 04/21/17 12:44 Cephalexin (Keflex) 500 mg FOUR TIMES A DAY ORAL 03/23/17 13:00 03/30/17 12:59 03/24/17 08:38 Docusate Sodium (Colace) 100 mg TWICE A DAY ORAL 03/22/17 18:00 04/21/17 17:59 03/24/17 08:39 Fluoxetine HCl (PROzac) 20 mg DAILY ORAL 03/22/17 09:00 04/21/17 08:59 03/24/17 08:38 Gabapentin (Neurontin) 600 mg THREE TIMES A DAY ORAL 03/22/17 09:00 04/21/17 08:59 03/24/17 08:38 Insulin Aspart (NovoLOG) 6 units NOVOTIAC SUBQ 03/22/17 06:30 04/21/17 06:29 03/23/17 16:43 Insulin Detemir (Levemir) 30 units BEDTIME SUBQ 03/22/17 21:00 04/21/17 20:59 03/23/17 20:41 Lisinopril (Prinivil) 40 mg DAILY ORAL 03/22/17 09:00 04/21/17 08:59 03/24/17 08:39 Magnesium Hydroxide (Mom) 30 ml DAILYPRN PRN ORAL Constipation 03/22/17 12:45 04/21/17 12:44 03/23/17 17:13 Pantoprazole (Protonix) 40 mg BID ORAL 03/22/17 09:00 04/21/17 08:59 03/24/17 08:38 Tamsulosin HCl (Flomax) 0.8 mg BEDTIME ORAL 03/22/17 21:00 04/21/17 20:59 03/23/17 20:35 Jacqueline Stuart M.D. Mar 24, 2017 11:33
[2017-03-24 12:00] VITALS: BP 140/75
--- NOTE | 2017-03-24 14:32 | Diagnostic Imaging Report ---
APPROVED REPORT CPT Code: 30047 Present Symptoms Comments: R/O DVT BILATERAL: Imaging reveals a patent deep venous system bilaterally. There is no evidence of thrombus within the femoral, popliteal or tibial segments. The greater saphenous veins are also within normal limits. Doppler indicates normal spontaneous flow within these segments.
[2017-03-24 16:00] VITALS: BP 126/65
[2017-03-24 20:00] VITALS: BP 131/76
[2017-03-24] MEDS: Tamsulosin 0.4mg cap ORAL SCH (21:43)
[2017-03-24] MEDS: Levemir Flexpen SUBQ SCH (21:48)
[2017-03-25 04:00] VITALS: BP 125/66
[2017-03-25] MEDS: NovoLOG Insulin Flexpen SUBQ SCH (06:30)
[2017-03-25 08:00] VITALS: BP 116/64
[2017-03-25 08:57] LABS: OTHERS PATHOLOGIST COMMENT
[2017-03-25] MEDS: Docusate 100mg cap ORAL SCH (09:13)
[2017-03-25] MEDS: Lisinopril 20mg tab ORAL SCH (09:14)
[2017-03-25 09:15] VITALS: BP 116/64
[2017-03-25] MEDS: Cephalexin 500mg cap ORAL SCH (09:15)
--- NOTE | 2017-03-25 09:23 | General Progress Note ---
Assessment/Plan Assessment/Plan 1. Urinary retention. 2. Scrotal edema. 3. Diabetes. 4. Hypercholesterolemia. PLAN PT elevate scrotum dc home po antibiotics local care elevate scrotum follow up with Subjective Allergies: Coded Allergies: No Known Allergies (Unverified , 03/10/17) Subjective improved edema scrotum shearer out Objective Last 24 Hour Vital Signs Date Time Temp Pulse Resp B/P (MAP) Pulse Ox O2 Delivery O2 Flow Rate FiO2 03/25/17 09:15 106 116/64 03/25/17 09:14 116/64 03/25/17 08:00 98.0 106 19 116/64 03/25/17 04:00 97.9 80 19 125/66 99 Room Air 03/24/17 20:00 98.2 81 18 131/76 98 Room Air 03/24/17 16:00 97.8 81 19 126/65 03/24/17 12:00 97.8 85 19 140/75 100 Intake and Output 03/25/17 03/26/17 19:00 07:00 Intake Total 250 ml Balance 250 ml Intake Oral 250 ml # Voids 1 Height (Feet): 5 Height (Inches): 6.00 Weight (Pounds): 214 Objective WDWN NAD clear breath sounds bilaterally without rhonchi or wheeze [id number] without MRG NABS nontender no HSM no CCE nonfocal scrotal edema and shearer in place NILDA MERINO Mar 25, 2017 09:23
[2017-03-25] MEDS ORDERED: TAMSULOSIN HCL0.4 MG ORAL (09:48)
[2017-03-25] MEDS ORDERED: CEPHALEXIN500 MG ORAL (09:48)
--- NOTE | 2017-03-25 09:51 | Infectious Diseases Prog Note ---
Assessment/Plan Assessment/Plan Assesment: Scrotal swelling- No obvious serious infectious process at present; ?scrotal cellulitis vs only edema -u/a WBC 5-10, nit neg, leuk +2; ucx NTD; repeat u/a no pyuria -Scrotal us :No acute testicular pathology. Negative for evidence of torsion, epididymitis, orchitis. Bilateral scrotal wall swelling, nonspecific as regards etiology. Bilateral hydroceles. Small cyst within the left epididymal head, likely a small epididymal cyst or spermatocele -HIV ag/ab neg -Gc/Cl p Afebrile, no leukocytosis S/p Spinal laminectomy 03/14/17 DM2, HTN, GERD Plan: -Contiue Keflex abx d# 4 / /5-7 for possible scrotal cellulitis -03/23 SP Zosyn #2 -03/21 Cefepime x1 -Uro f/u: recommend scrotal elevation -f/u cx, GC/CL urine -Monitor CBC/BMP, temperatures - DC as per PCP Subjective Constitutional: Denies: no symptoms, fever, chills, fatigue, anorexia, drenching sweats, other Allergies: Coded Allergies: No Known Allergies (Unverified , 03/10/17) Objective Vital Signs Last 24 Hour Vital Signs Date Time Temp Pulse Resp B/P (MAP) Pulse Ox O2 Delivery O2 Flow Rate FiO2 03/25/17 09:15 106 116/64 03/25/17 09:14 116/64 03/25/17 08:00 98.0 106 19 116/64 03/25/17 04:00 97.9 80 19 125/66 99 Room Air 03/24/17 20:00 98.2 81 18 131/76 98 Room Air 03/24/17 16:00 97.8 81 19 126/65 03/24/17 12:00 97.8 85 19 140/75 100 Height (Feet): 5 Height (Inches): 6.00 Weight (Pounds): 214 HEENT: mucous membranes moist Respiratory/Chest: normal breath sounds Cardiovascular: normal rate Abdomen: non distended Current Medications Medications (Trade) Dose Ordered Sig/Tyrone Route PRN Reason Start Time Stop Time Status Last Admin Dose Admin Amlodipine Besylate (Norvasc) 10 mg DAILY ORAL 03/22/17 09:00 04/21/17 08:59 03/25/17 09:15 Atorvastatin Calcium (Lipitor) 10 mg BEDTIME ORAL 03/22/17 21:00 04/21/17 20:59 03/24/17 21:43 Bisacodyl (Dulcolax) 10 mg DAILYPRN PRN RECTAL Constipation 03/22/17 12:45 04/21/17 12:44 Cephalexin (Keflex) 500 mg FOUR TIMES A DAY ORAL 03/23/17 13:00 03/30/17 12:59 03/25/17 09:15 Docusate Sodium (Colace) 100 mg TWICE A DAY ORAL 03/22/17 18:00 04/21/17 17:59 03/25/17 09:13 Fluoxetine HCl (PROzac) 20 mg DAILY ORAL 03/22/17 09:00 04/21/17 08:59 03/25/17 09:13 Gabapentin (Neurontin) 600 mg THREE TIMES A DAY ORAL 03/22/17 09:00 04/21/17 08:59 03/25/17 09:15 Insulin Aspart (NovoLOG) 6 units NOVOTIAC SUBQ 03/22/17 06:30 04/21/17 06:29 03/24/17 17:16 Insulin Detemir (Levemir) 30 units BEDTIME SUBQ 03/22/17 21:00 04/21/17 20:59 03/24/17 21:48 Lisinopril (Prinivil) 40 mg DAILY ORAL 03/22/17 09:00 04/21/17 08:59 03/25/17 09:14 Magnesium Hydroxide (Mom) 30 ml DAILYPRN PRN ORAL Constipation 03/22/17 12:45 04/21/17 12:44 03/23/17 17:13 Pantoprazole (Protonix) 40 mg BID ORAL 03/22/17 09:00 04/21/17 08:59 03/25/17 09:14 Tamsulosin HCl (Flomax) 0.8 mg BEDTIME ORAL 03/22/17 21:00 04/21/17 20:59 03/24/17 21:43 TRISTIN DONALDSON M.D. Mar 25, 2017 09:51
--- NOTE | 2017-03-28 08:15 | Discharge Summary ---
Discharge Summary Hospital Course Date of Admission Mar 21, 2017 at 23:52 Date of Discharge Mar 25, 2017 at 10:35 Admitting Diagnosis Scrotal pain/hematoma/swelling JEREMIAH Bowen is a 56 year old male who was admitted on Mar 21, 2017 at 23:52 for Scrotal Pain/Hematoma/Swelling Hospital Course dc summary #[id number] Discharge Medications Continued Medications: Amlodipine Besylate* (Amlodipine Besylate*) 10 Mg Tablet 10 MG ORAL DAILY, TAB Aspirin (Aspirin EC) 81 Mg Tablet.dr 81 MG ORAL DAILY, TAB Cephalexin* (Keflex*) 500 Mg Capsule 250 MG ORAL EVERY 6 HOURS, CAP Eucerin (Eucerin Creme) 57 Gm Cream..g. 1 APPLIC TOPIC BID for dry skin, GM Fluoxetine Hcl* (Fluoxetine Hcl*) 20 Mg Capsule 20 MG ORAL DAILY, CAP Gabapentin* (Gabapentin*) 600 Mg Tablet 600 MG ORAL THREE TIMES A DAY, TAB Insulin Glargine (Lantus) 100 Unit/1 Ml Insuln.pen 30 SUBQ BEDTIME, #1 EA 0 Refills Lisinopril* (Lisinopril*) 40 Mg Tablet 40 MG ORAL DAILY, TAB Pantoprazole* (Pantoprazole*) 40 Mg Tablet.dr 40 MG ORAL DAILY, TAB Simvastatin (Zocor) 10 Mg Tablet 10 MG ORAL BEDTIME, TAB Tamsulosin Hcl (Tamsulosin Hcl*) 0.4 Mg Cap.er.24h 0.4 MG ORAL BEDTIME, CAP [Lispro] () 6 UNITS SUBQ TID Discharge Condition Upon Discharge: stable Discharge Disposition Patient was discharged to Home (01) Discharge Diagnoses: Discharge Instructions Discharge Instructions Special Instructions I have been assigned to complete a D/C Summary on this account. I was not involved in the patient management Roula Christine NP (Vanchtein) Mar 28, 2017 08:15
--- NOTE | 2017-03-29 | Discharge Summary 2 SIG ---
DATE OF ADMISSION: 03/21/2017 DATE OF DISCHARGE: 03/25/2017 REASON FOR ADMISSION: 56-year-old male with past medical history of hypertension, diabetes, and hypercholesterolemia. undergone lumbar laminectomy 1 week ago and developed afterwards urinary retention. He had indwelling Hernandez catheter. After the surgery, he developed scrotal swelling. After the surgery, the patient decided to sign against medical advice due to his own accord. At that point, the patient went to [facility] and after to [facility]. He then returned to [facility] for ongoing care and management. He denied fever, chills, nausea, vomiting, or abdominal pain. The patient with evidence of scrotal edema and pain. Testicular ultrasound done in the emergency room revealed no evidence of torsion, orchitis, epididymitis, but demonstrated bilateral hydroceles. The patient was admitted for further management for scrotal edema and urinary retention. HOSPITAL COURSE: The patient was admitted. The patient initially started on IV antibiotics. Urinalysis showed moderate bacteria, pyuria, and was positive for leukocyte esterase. ID consult was requested. Urine culture came back negative. IV antibiotic discontinued. ID consult closely followed and recommended to keep off antibiotic. Scrotum was elevated. Pain management was provided. Hernandez catheter was discontinued. Flomax added to existing regimen. Voiding trial was attempted. The patient was working with physical therapist, was able to ambulate. Dressings were changed as needed. Venous duplex of bilateral lower extremities was negative. The patient was progressing. The patient noted to have anemia, however, hemoglobin and hematocrit remained at baseline, with small trend up prior to discharge. Stool OB was negative. The patient was checked for HIV, Chlamydia and gonorrhea, all laboratory results came back negative. Statin was continued. Bowel regimen was instituted. Pain management was provided. Blood pressure was managed with current regimen of calcium-channel daina and BONY inhibitor, and remained stable. Blood sugar was managed with sliding scale of insulin. The patient was able to void. Pain resolved. Scrotal edema decreased. The patient was cleared for discharge home.Follow up with his surgeon as well as the urologist as an outpatient. FINAL DIAGNOSES: 1. Scrotal edema. 2. Urinary retention. 3. Diabetes. 4. Hypercholesterolemia. 5. Status post recent spinal surgery. DISCHARGE MEDICATIONS: See medication reconciliation list. DISCHARGE INSTRUCTIONS: The patient was discharged home. Follow up with surgeon and urologist. Reyes Thomas M.D. I have been assigned to dictate discharge summary on this account and I was not involved in the patient's management. Roula Christine N.P. (Vanchtein) DR: EUGENE JOB#: [id number] CC: NATY
== END 2017-03-25 10:35 | disposition home or self-care (01) | DRG 696 ==
LOC: EMR 19:30 → EDBEDREQ 22:26 → 3E 23:52 → EDBEDREQ 03-22 00:12
DX: R33.9 Retention of urine, unspecified (principal); I10 Essential (primary) hypertension; N50.89 Other specified disorders of the male genital organs; E11.9 Type 2 diabetes mellitus without complications; E78.00 Pure hypercholesterolemia, unspecified; N43.3 Hydrocele, unspecified; K21.9 Gastro-esophageal reflux disease without esophagitis
CPT/HCPCS: 36415; 76870; 80053; 81003; 82270; 82378; 82607; 82746; 82962; 83540; 83550; 83615; 83735; 84100; 85007; 85025; 85044; 85060; 85610; 85651; 85730; 86703; 87086; 87491; 87590; 93970; 99285; J1815; S5561